=== PATIENT | female | born 1980 | race Caucasian/White ===

== ENCOUNTER → 2018-07-06 | Outpatient (CLI) | payer BC ==
--- NOTE | 2018-07-07 09:01 | MM ---
Reason for exam: screening (asymptomatic). Last mammogram was performed 3 years and 2 months ago. Physical Findings: A clinical breast exam by your physician is recommended on an annual basis and results should be correlated with mammographic findings. MG Screening Mammo w CAD Bilateral CC and MLO view(s) were taken. Prior study comparison: May 17, 2015, right breast MG work up mamm w CAD RT. May 10, 2015, bilateral MG screening mammo w CAD. The breast tissue is heterogeneously dense. This may lower the sensitivity of mammography. Finding: There are typically benign round, grouped/clustered calcifications in the upper outer quadrant, middle position of the right breast. There is no dominant lesion. Asymmetric breast tissue in the left breast is stable. Benign bilateral axillary lymph nodes redemonstrated. ASSESSMENT: Benign, BI-RAD 2 RECOMMENDATION: Routine screening mammogram of both breasts in 1 year.
== END ==
LOC: RADMAMWWP 11:05
PROVIDERS: ATTEND Obstetrics & Gynecology
DX: Z12.31 Encounter for screening mammogram for malignant neoplasm of breast (principal)
CPT/HCPCS: 77067

== ENCOUNTER 2019-08-25 08:37 | Inpatient (IN) | payer BC ==
[2019-08-25] MEDS ORDERED: ACETAMINOPHEN TAB 325 MG TAB PO STA (09:05)
[2019-08-25] MEDS ORDERED: SODIUM CHLORIDE 0.9% 1,000 ML IV ONE (09:05)
[2019-08-25] MEDS ORDERED: SODIUM CHLORIDE 0.9% 500 ML 500 ML IV ONE (09:05)
[2019-08-25] MEDS ORDERED: IPRATROPIUM-ALBUTEROL 3 ML NEB INHALATION STA (09:24)
[2019-08-25] MEDS ORDERED: VANCOMYCIN IV PER PHARMACY 1 EACH MISC MISCELLANE PRN (09:25)
[2019-08-25] MEDS: SODIUM CHLORIDE 0.9% 1,000 ML IV SCH ×2 (09:29→22:41)
[2019-08-25] MEDS ORDERED: IBUPROFEN 800 MG TAB PO STA (09:31)
--- NOTE | 2019-08-25 09:35 | ED ---
URI HPI - General Source: patient Mode of arrival: ambulatory Limitations: no limitations <Joan Espinoza - Last Filed: 08/25/19 10:38> <Dmitry March - Last Filed: 08/25/19 11:11> - General Chief Complaint: Upper Respiratory Infection Stated Complaint: Pneumonia Time Seen by Provider: 08/25/19 09:05 - History of Present Illness Initial Comments: 39-year-old female presenting today for chief complaint of something out patient clinic for possible influenza and pneumonia, diagnosis today. Patient states she has had a fever cough congestion since Thursday. She states that symptoms worsened today and she presented to urgent care where she was diagnosed after nasal stop with influenza she is unsure if it was influenza A or B and chest x- ray was performed at this time. She states there is an area suspicious for possible pneumonia and patient was sent to the emergency department for further evaluation. Patient has not taken any Tylenol today. She admits to cough, congestion, sore throat, body aches, but denies chest pain, shortness of breath, nausea, vomiting, diarrhea, abdominal pain. Patient upon arrival is febrile, increased HR with stable blood pressure. (Joan Espinoza) - Related Data Home Medications Medication Instructions Recorded Confirmed No Known Home Medications 08/25/19 08/25/19 Allergies Allergy/AdvReac Type Severity Reaction Status Date / Time Sulfa (Sulfonamide Allergy Rash/Hives Verified 08/25/19 10:27 Antibiotics) Review of Systems ROS Other: All systems not noted in ROS Statement are negative. <Joan Espinoza - Last Filed: 08/25/19 10:38> ROS Other: All systems not noted in ROS Statement are negative. <Dmitry March - Last Filed: 08/25/19 11:11> ROS Statement: Those systems with pertinent positive or pertinent negative responses have been documented in the HPI. Past Medical History Past Medical History: Eye Disorder History of Any Multi-Drug Resistant Organisms: None Reported Past Surgical History: Section, Cholecystectomy, Uterine Ablation Past Psychological History: No Psychological Hx Reported Smoking Status: Never smoker Past Alcohol Use History: None Reported Past Drug Use History: None Reported <Joan Espinoza - Last Filed: 08/25/19 10:38> - Past Family History Mother Family Medical History: No Reported History Additional Family Medical History / Comment(s): Mother is healthy Father Additional Family Medical History / Comment(s): Pt does not know much about her father other than he is , was an alcoholic and bilpolar <Dmitry March - Last Filed: 08/25/19 11:11> General Exam Limitations: no limitations <Joan Espinoza Garo - Last Filed: 08/25/19 10:38> - General Exam Comments Initial Comments: General: The patient is awake and alert, in no distress, and does not appear acutely ill. Eye: +3 mm pupils are equal, round and reactive to light, extra-ocular movements are intact. No nystagmus. There is normal conjunctiva bilaterally. No signs of icterus. No photophobia Ears, nose, mouth and throat: There are moist mucous membranes and no oral lesions. Oropharynx was not erythematous there is no tonsillar enlargement exudates or lesions. Uvula midline. No anterior cervical lymphadenopathy. Rhi norrhea, clear and bilateral nares. No tripoding, no drooling. Neck: The neck is supple, there is no tenderness or JVD. No nuchal rigidity Cardiovascular: There is a regular rate and rhythm. No murmur, rub or gallop is appreciated. Respiratory: Lungs are clear to auscultation, respirations are non-labored, breath sounds are equal. No wheezes, stridor, rales, or rhonchi. No retractions or abdominal breathing. Gastrointestinal: Soft, non-distended, non-tender abdomen without masses or org anomegaly noted. There is no rebound or guarding present. Bowel sounds are unremarkable. Musculoskeletal: Normal ROM, no tenderness. Strength 5/5. Sensation intact. Radial pulses equal bilaterally 2+. Neurological: A&O x 3. CN II-XII intact grossly, There are no obvious motor or sensory deficits. Coordination appears grossly intact. Speech appears normal, no muffling. Skin: Skin is warm and dry and no rashes or lesions are noted. No extremity edema Psychiatric: Cooperative (Joan Espinoza) Course Vital Signs 08/25/19 08/25/19 08/25/19 08:48 09:32 09:34 Temperature 102.9 F H 103.6 F H Pulse Rate 124 H 110 H 72 Respiratory 19 18 Rate Blood Pressure 118/74 O2 Sat by Pulse 96 95 Oximetry 08/25/19 08/25/19 08/25/19 09:46 10:39 10:42 Temperature 101.3 F H Pulse Rate 74 108 H 109 H Respiratory 20 18 Rate Blood Pressure 121/71 121/71 O2 Sat by Pulse 92 L 92 L Oximetry Medical Decision Making - Lab Data Result diagrams: 08/25/19 09:20 08/25/19 09:20 <Joan Espinoza - Last Filed: 08/25/19 10:38> - Lab Data Result diagrams: 08/25/19 09:20 08/25/19 09:20 <Dmitry March - Last Filed: 08/25/19 11:11> - Medical Decision Making 39-year-old female presents today for chief complaint of some type urgent care for positive influenza with pneumonia. Upon arrival patient febrile tachycardic. Patient oustide CXR reviewed by myself, attending and med radio logist whom i called to consult we feel there is a right lobar pneumonia. With + Flu testing, concern for Strep pneumonia. Patient ordered ceftriaxone, vancomycin and azithromycin emergency department. Patient will be admitted blood cultures pending. (Joan Espinoza) Chart and x-ray was reviewed. Case was discussed with practitioner Alexis. Case also discussed with Dr. flores, who will admit covering for Dr. Chatman. (Dmitry March) - Lab Data Lab Results 08/25/19 08/25/19 08/25/19 Range/Units 09:20 09:20 09:20 WBC 7.1 (3.8-10.6) k/uL RBC 4.38 (3.80-5.40) m/uL Hgb 13.2 (11.4-16.0) gm/dL Hct 38.6 (34.0-46.0) % MCV 88.1 (80.0-100.0) fL MCH 30.1 (25.0-35.0) pg MCHC 34.2 (31.0-37.0) g/dL RDW 12.6 (11.5-15.5) % Plt Count 217 (150-450) k/uL Neutrophils % 78 % Lymphocytes % 12 % Monocytes % 6 % Eosinophils % 1 % Basophils % 1 % Neutrophils # 5.5 (1.3-7.7) k/uL Lymphocytes # 0.8 L (1.0-4.8) k/uL Monocytes # 0.4 (0-1.0) k/uL Eosinophils # 0.0 (0-0.7) k/uL Basophils # 0.0 (0-0.2) k/uL Sodium 137 (137-145) mmol/L Potassium 3.2 L (3.5-5.1) mmol/L Chloride 102 (98-107) mmol/L Carbon Dioxide 27 (22-30) mmol/L Anion Gap 8 mmol/L BUN 4 L (7-17) mg/dL Creatinine 0.66 (0.52-1.04) mg/dL Est GFR (CKD-EPI)AfAm >90 (>60 ml/min/1.73 sqM) Est GFR (CKD-EPI)NonAf >90 (>60 ml/min/1.73 sqM) Glucose 121 H (74-99) mg/dL Plasma Lactic Acid Curtis 0.8 (0.7-2.0) mmol/L Calcium 8.7 (8.4-10.2) mg/dL Total Bilirubin 0.4 (0.2-1.3) mg/dL AST 36 (14-36) U/L ALT 21 (4-34) U/L Alkaline Phosphatase 73 (38-126) U/L Total Protein 7.1 (6.3-8.2) g/dL Albumin 3.7 (3.5-5.0) g/dL Disposition Is patient prescribed a controlled substance at d/c from ED?: No Time of Disposition: 10:07 Decision to Admit Reason: Admit from EC Decision Date: 08/25/19 Decision Time: 10:07 <Joan Espinoza - Last Filed: 08/25/19 10:38> <Dmitry March - Last Filed: 08/25/19 11:11> Clinical Impression: Influenza, Pneumonia, Fever Disposition: ADMITTED IP TO THIS [facility] Condition: Stable
[2019-08-25 09:45] LABS: Basophils % (A) 1 %; Eosinophils % (A) 1 %; HCT 38.6 % (34.0-46.0); HGB 13.2 gm/dL (11.4-16.0); Lymphocytes # (A) 0.8 k/uL (1.0-4.8); Lymphocytes % (A) 12 %; MCH 30.1 pg (25.0-35.0); MCHC 34.2 g/dL (31.0-37.0); MCV 88.1 fL (80.0-100.0); Mean Platelet Volume 8.5; Monocytes # (A) 0.4 k/uL (0-1.0); Monocytes % (A) 6 %; Neutrophils # (A) 5.5 k/uL (1.3-7.7); Neutrophils % (A) 78 %; Platelet Count 217 k/uL (150-450); RBC 4.38 m/uL (3.80-5.40); RDW 12.6 % (11.5-15.5); WBC 7.1 k/uL (3.8-10.6)
[2019-08-25] MEDS ORDERED: VANCOMYCIN 1,750 MG in SODIUM CHLORIDE 0.9% 500 ML 500 ML IVPB STA (09:50)
[2019-08-25] MEDS ORDERED: AZITHROMYCIN 500 MG in SODIUM CHLORIDE 0.9% 250 ML IVPB STA (10:05)
[2019-08-25 10:07] LABS: ALT 21 U/L (4-34); AST 36 U/L (14-36); African American GFR (CKD) >90 (>60 ml/min/1.73 sqM); Albumin 3.7 g/dL (3.5-5.0); Alkaline Phosphatase 73 U/L (38-126); Anion Gap 8 mmol/L; Blood Urea Nitrogen 4 mg/dL (7-17); Calcium 8.7 mg/dL (8.4-10.2); Carbon Dioxide 27 mmol/L (22-30); Chloride 102 mmol/L (98-107); Glucose 121 mg/dL (74-99); Non-African American GFR(CKD) >90 (>60 ml/min/1.73 sqM); Potassium 3.2 mmol/L (3.5-5.1); Sodium 137 mmol/L (137-145); Total Bilirubin 0.4 mg/dL (0.2-1.3); Total Protein 7.1 g/dL (6.3-8.2)
[2019-08-25] MEDS ORDERED: NALOXONE 0.4 MG/ML 1 ML VIAL IV PRN (10:07)
[2019-08-25] MEDS ORDERED: INFLUENZA VACCINE (6 MOS+) 60 MCG/0.5 ML SYRINGE IM ONE (11:04)
--- NOTE | 2019-08-25 13:18 | XR ---
EXAMINATION TYPE: XR chest 1V portable DATE OF EXAM: 08/25/2019 COMPARISON: 08/25/2019 HISTORY: Shortness of breath TECHNIQUE: Single frontal view of the chest is obtained. FINDINGS: Bilateral infiltrate and small right effusion. No pneumothorax. Heart size normal. IMPRESSION: Bilateral infiltrate correlate for pneumonia otherwise consider CHF.
--- NOTE | 2019-08-25 13:40 | P.HPIM ---
History of Present Illness This is a pleasant 39 years old female with past medical history of GERD, bilateral glaucoma. Patient presents with cough and fever for the last 3-4 days. Her cough is dry with tenacious phlegm. She has fever and sweating that's not subsided but no overt dyspnea or chest pain. With no resolution of symptoms she went to urgent care today who diagnosed her with bilateral pneumonia and found to be influenza positive and patient was referred to the current hospital. Patient is currently awake and alert and she is breathing quietly. No significant dyspnea. However she is not feeling well On admission patient has a fever of 103.6, she is tachycardic at 110, blood pressure 121/71, she is saturating 92% on room air. Potassium was 3.2, other than that she has unremarkable CBC, BMP, INR, liver enzymes. In the emergency room patient was started on vancomycin, Rocephin and Tamiflu. Also she was started on normal saline at 100 mL per hour after 1.5 L of normal saline. Review of Systems CONSTITUTIONAL: No fever, no malaise, no fatigue. HEENT: No recent visual problems or hearing problems. Denied any sore throat. CARDIOVASCULAR: No orthopnea, PND, no palpitations, no syncope. PULMONARY: no hemoptysis. GASTROINTESTINAL: No diarrhea, no nausea, no vomiting, no abdominal pain. Normoactive bowel sounds. NEUROLOGICAL: No headaches, no weakness, no numbness. HEMATOLOGICAL: Denies any bleeding or petechiae. GENITOURINARY: Denies any burning micturition, frequency, or urgency. MUSCULOSKELETAL/RHEUMATOLOGICAL: Denies any joint pain, swelling, or any muscle pain. ENDOCRINE: Denies any polyuria or polydipsia. Past Medical History Past Medical History: Eye Disorder, GERD/Reflux Additional Past Medical History / Comment(s): Bilateral glaucoma, slight scoliosis History of Any Multi-Drug Resistant Organisms: None Reported Past Surgical History: Section, Cholecystectomy, Uterine Ablation Additional Past Surgical History / Comment(s): Bilateral laser tx to eyes for glaucoma Past Anesthesia/Blood Transfusion Reactions: No Reported Reaction, Motion Sickness Smoking Status: Never smoker - Past Family History Mother Family Medical History: No Reported History Additional Family Medical History / Comment(s): Mother is healthy Father Additional Family Medical History / Comment(s): Pt does not know much about her father other than he is , was an alcoholic and bilpolar Medications and Allergies Home Medications Medication Instructions Recorded Confirmed Type No Known Home Medications 08/25/19 08/25/19 History Allergies Allergy/AdvReac Type Severity Reaction Status Date / Time Sulfa (Sulfonamide Allergy Rash/Hives Verified 08/25/19 10:27 Antibiotics) Physical Exam Vitals: Vital Signs Temp Pulse Resp BP Pulse Ox 08/25/19 10:42 101.3 F H 109 H 18 121/71 92 L 08/25/19 10:39 108 H 20 121/71 92 L 08/25/19 09:46 74 08/25/19 09:34 72 08/25/19 09:32 103.6 F H 110 H 18 95 08/25/19 08:48 102.9 F H 124 H 19 118/74 96 Intake and Output 08/24/19 08/25/19 08/25/19 22:59 06:59 14:59 Other: Weight 89.63 kg GENERAL: The patient is alert and oriented x3, not in any acute distress. Well developed, well nourished. HEENT: Pupils are round and equally reacting to light. EOMI. No scleral icterus. No conjunctival pallor. Normocephalic, atraumatic. No pharyngeal erythema. No thyromegaly. CARDIOVASCULAR: S1 and S2 present. No murmurs, rubs, or gallops. -PULMONARY: Chest is clear to auscultation, bilateral harsh breath sounds, with inspiratory crackles ABDOMEN: Soft, nontender, nondistended, normoactive bowel sounds. No palpable organomegaly. MUSCULOSKELETAL: No joint swelling or deformity. EXTREMITIES: No cyanosis, clubbing, or pedal edema. NEUROLOGICAL: Gross neurological examination did not reveal any focal deficits. SKIN: No rashes. No petechiae Results CBC & Chem 7: 08/25/19 09:20 08/25/19 09:20 Labs: Abnormal Lab Results - Last 24 Hours (Table) 08/25/19 08/25/19 Range/Units 09:20 09:20 Lymphocytes # 0.8 L (1.0-4.8) k/uL Potassium 3.2 L (3.5-5.1) mmol/L BUN 4 L (7-17) mg/dL Glucose 121 H (74-99) mg/dL Thrombosis Risk Factor Assmnt - Choose All That Apply Each Factor Represents 1 point: Age 41-60 years, Obesity (BMI >25), Serious lung disease incl. pneumonia (< 1month) Other Risk Factors: No Other congenital or acquired thrombophilia - If yes, enter type in comment: No Thrombosis Risk Factor Assessment Total Risk Factor Score: 3 Thrombosis Risk Factor Assessment Level: Moderate Risk Assessment and Plan Assessment: bilateral community acquired pneumonia, rule out staph pneumonia Influenza Systemic inflammatory response with fever, tachycardia GERD Bilateral glaucoma Plan: This is a pleasant 39 years old female who presents with influenza and pneumo vanita. Continue with antibiotics of vancomycin, ceftriaxone and Tamiflu and follow-up culture results. I'll consult pulmonary service as well Labs and medication were reviewed.. Continue same treatment. Continue with symptomatic treatment. Resume home medication. Monitor lytes and vitals. DVT and GI prophylaxis. Further recommendations of the clinical course of the patient DVT prophylaxis: Subcutaneous heparin GI Prophylaxis: Pepcid Prognosis is guarded
--- NOTE | 2019-08-25 13:42 | P.CNPUL ---
History of Present Illness Consult date: 08/25/19 Requesting physician: Storm E Hugo Reason for consult: dyspnea, abnormal CXR/CT Chief complaint: Shortness of breath, cough, congestion History of present illness: This is a very pleasant 39-year-old female patient who follows with Dr. Chatman is her primary care physician. She has no significant medical history. Not on any home medications. ALLERGY is to sulfa. She states 3 days ago she developed increasing shortness of breath, cough or congestion. Nonproductive cough. Body aches, fever, chills or change initially presented to an urgent care center where she was told she was positive for influenza and possible pneumonia on a chest x-ray and was referred here for the same. Chest x-ray does show bilateral infiltrates including the right lower lobe and left perihilar region suspicious for community-acquired pneumonia. White count 7.1. Hemoglobin 13.2. Sodium 137. Potassium 3.2. Creatinine 0.66. HCG is negative. Outside facility stated influenza positive. She is been initiated on vancomycin and ceftriaxone. Started on Tamiflu. 0.9 normal saline at 100 ML's per hour. She is seen in consultation on the regular medical floor. She is awake and alert in no acute distress. Maintaining O2 saturations in the 90s on room air. She's had a T-max of 101.3. Currently 98.4. Review of Systems REVIEW OF SYSTEMS: CONSTITUTIONAL: Denies any recent significant weight loss or weight gain. EYES: Denies change in vision. EARS, NOSE, MOUTH, THROAT: Denies headaches, positive sore throat. CARDIOVASCULAR: Denies chest pain, palpitations or syncopal episodes. RESPIRATORY: Positive for shortness of breath, cough, congestion no hemoptysis. GASTROINTESTINAL: Denies change in appetite, denies abdominal pain GENITOURINARY: Denies hematuria, denies infections. MUSKULOSKELETAL: Denies pain, denies swelling. INTEGUMENTARY: Denies rash, denies eczema. NEUROLOGICAL: Denies recent memory loss, no recent seizure activity. PSYCHIATRIC: Denies anxiety, denies depression. HEMATOLOGIC/LYMPHATIC: Denies anemia, denies enlarged lymph nodes. Past Medical History Past Medical History: Eye Disorder, GERD/Reflux Additional Past Medical History / Comment(s): Bilateral glaucoma, slight scolio sis History of Any Multi-Drug Resistant Organisms: None Reported Past Surgical History: Section, Cholecystectomy, Uterine Ablation Additional Past Surgical History / Comment(s): Bilateral laser tx to eyes for glaucoma Past Anesthesia/Blood Transfusion Reactions: No Reported Reaction, Motion Sickness Smoking Status: Never smoker - Past Family History Mother Family Medical History: No Reported History Additional Family Medical History / Comment(s): Mother is healthy Father Additional Family Medical History / Comment(s): Pt does not know much about her father other than he is , was an alcoholic and bilpolar Medications and Allergies Home Medications Medication Instructions Recorded Confirmed Type No Known Home Medications 08/25/19 08/25/19 History Allergies Allergy/AdvReac Type Severity Reaction Status Date / Time Sulfa (Sulfonamide Allergy Rash/Hives Verified 08/25/19 10:27 Antibiotics) Physical Exam Vitals: Vital Signs Temp Pulse Pulse Resp BP BP Pulse Ox 08/25/19 12:29 98.4 F 104 H 20 107/71 94 L 08/25/19 10:42 101.3 F H 109 H 18 121/71 92 L 08/25/19 10:39 108 H 20 121/71 92 L 08/25/19 09:46 74 08/25/19 09:34 72 08/25/19 09:32 103.6 F H 110 H 18 95 08/25/19 08:48 102.9 F H 124 H 19 118/74 96 Intake and Output 08/24/19 08/25/19 08/25/19 22:59 06:59 14:59 Other: Weight 89.63 kg GENERAL EXAM: Alert, active, pleasant 39-year-old female patient, comfortable in no apparent distress. On room air. HEAD: Normocephalic. EYES: Normal reaction of pupils, equal size. NOSE: Clear with pink turbinates. THROAT: Noted erythema no exudates. NECK: No masses, no JVD. CHEST: No chest wall deformity. LUNGS: Equal air entry with few scattered rhonchi bilaterally. CVS: S1 and S2 normal with no audible murmur, regular rhythm. ABDOMEN: No hepatosplenomegaly, normal bowel sounds, no guarding or rigidity. SPINE: No scoliosis or deformity SKIN: No rashes CENTRAL NERVOUS SYSTEM: No focal deficits, tone is normal in all 4 extremities. EXTREMITIES: There is no peripheral edema. No clubbing, no cyanosis. Peripheral pulses are intact. Results - Laboratory Findings CBC and BMP: 08/25/19 09:20 08/25/19 09:20 Abnormal lab findings: Abnormal Labs 08/25/19 08/25/19 09:20 09:20 Lymphocytes # 0.8 L Potassium 3.2 L BUN 4 L Glucose 121 H - Diagnostic Findings Chest x-ray: image reviewed (Bilateral patchy infiltrate) Assessment and Plan Assessment: 1 Bilateral pneumonia, community-acquired 2 Influenza positive per outside facility 3 Febrile illness secondary to above Plan: The patient was seen and evaluated by Dr. Pearl. Chest x-ray and labs reviewed Continue Tamiflu Continue vancomycin and ceftriaxone Continue IV fluids Repeat chest x-ray in a.m. We will continue to follow I, the cosigning physician, performed a history & physical examination of the patient. Lungs sounds with few scattered rhonchi bilaterally. Maintaining good O2 saturations in the 90s on room air. I discussed the assessment and plan of care with my nurse practitioner, Brenda Watkins. I attest to the above consultation as dictated by her. Time with Patient: Greater than 30
[2019-08-25] MEDS: OSELTAMIVIR 75 MG CAP PO SCH ×2 (14:17→23:20)
[2019-08-25] MEDS: ACETAMINOPHEN TAB 325 MG TAB PO PRN ×2 (17:05→22:39)
[2019-08-25] MEDS: VANCOMYCIN 1,500 MG in SODIUM CHLORIDE 0.9% 250 ML IVPB SCH (20:55)
[2019-08-25] MEDS: FAMOTIDINE 20 MG TAB PO SCH (20:56)
[2019-08-25] MEDS: HEPARIN SODIUM,PORCINE 5,000 UNIT/ML 1 ML VIAL SQ SCH (20:56)
[2019-08-25] MEDS ORDERED: FAMOTIDINE 20 MG/2 ML VIAL IV SCH (21:00)
[2019-08-26] MEDS: VANCOMYCIN 1,500 MG in SODIUM CHLORIDE 0.9% 250 ML IVPB SCH ×3 (05:56→19:43)
[2019-08-26] MEDS: ACETAMINOPHEN TAB 325 MG TAB PO PRN ×2 (05:56→22:25)
[2019-08-26] MEDS: SODIUM CHLORIDE 0.9% 1,000 ML IV SCH ×3 (06:07→18:55)
[2019-08-26] MEDS: FAMOTIDINE 20 MG TAB PO SCH ×2 (08:08→21:09)
[2019-08-26] MEDS: OSELTAMIVIR 75 MG CAP PO SCH ×2 (08:08→21:09)
[2019-08-26] MEDS: guaiFENesin SYRUP 100MG/5ML 200 MG/10 ML CUP PO PRN ×2 (08:08→18:55)
[2019-08-26] MEDS: HEPARIN SODIUM,PORCINE 5,000 UNIT/ML 1 ML VIAL SQ SCH ×2 (08:09→21:09)
[2019-08-26] MEDS: IBUPROFEN 600 MG TAB PO PRN ×2 (08:11→19:43)
--- NOTE | 2019-08-26 08:46 | P.PN ---
Subjective This is a pleasant 39 years old female with past medical history of GERD, bilateral glaucoma. Patient presents with cough and fever for the last 3-4 days. Her cough is dry with tenacious phlegm. She has fever and sweating that's not subsided but no overt dyspnea or chest pain. With no resolution of symptoms she went to urgent care today who diagnosed her with bilateral pneumonia and found to be influenza positive and patient was referred to the current hospital. Patient is currently awake and alert and she is breathing quietly. No signif icant dyspnea. However she is not feeling well On admission patient has a fever of 103.6, she is tachycardic at 110, blood pressure 121/71, she is saturating 92% on room air. Potassium was 3.2, other than that she has unremarkable CBC, BMP, INR, liver enzymes. In the emergency room patient was started on vancomycin, Rocephin and Tamiflu. Also she was started on normal saline at 100 mL per hour after 1.5 L of normal saline. 08/26/2019 Patient is fully awake and oriented. She is still complaining of from fever and dry cough, no phlegm is breaking up. No dyspnea or chest pain. Her temperature this morning was up to 102-103 degrees Fahrenheit. She is mildly tachycardic at 111, blood pressure is stable. No change in urine or bowel habits.No headache. No myalgia or arthralgia. Repeat labs from this morning are still pending. Patient remains on vancomycin, Rocephin and Tamiflu. Continue with droplet isolation. Review of systems CONSTITUTIONAL: No fever, no malaise, no fatigue. HEENT: No recent visual problems or hearing problems. Denied any sore throat. CARDIOVASCULAR: No orthopnea, PND, no palpitations, no syncope. PULMONARY: no hemoptysis. GASTROINTESTINAL: No diarrhea, no nausea, no vomiting, no abdominal pain. Normoactive bowel sounds. NEUROLOGICAL: No headaches, no weakness, no numbness. HEMATOLOGICAL: Denies any bleeding or petechiae. GENITOURINARY: Denies any burning micturition, frequency, or urgency. MUSCULOSKELETAL/RHEUMATOLOGICAL: Denies any joint pain, swelling, or any muscle pain. ENDOCRINE: Denies any polyuria or polydipsia. Active Medications Generic Name Dose Route Start Last Admin Trade Name Freq PRN Reason Stop Dose Admin Acetaminophen 650 mg 08/25/19 16:59 08/26/19 05:56 Tylenol Tab PO 650 mg Q6HR PRN Administration Fever and/ or Pain Famotidine 20 mg 08/25/19 21:00 08/26/19 08:08 Pepcid PO 20 mg Q12HR DELMY Administration Guaifenesin 200 mg 08/26/19 07:08 08/26/19 08:08 Robitussin PO 200 mg Q4H PRN Administration Cough Heparin Sodium (Porcine) 5,000 unit 08/25/19 21:00 08/26/19 08:09 Heparin SQ 5,000 unit Q12HR DELMY Administration Sodium Chloride 1,000 mls @ 100 mls/hr 08/25/19 09:15 08/26/19 06:07 Saline 0.9% IV 100 mls/hr .Q10H DELMY Administration Ceftriaxone Sodium 1 gm/ 50 mls @ 100 mls/hr 08/26/19 09:00 08/26/19 08:09 Sodium Chloride IVPB 100 mls/hr Q24HR DELMY Administration Vancomycin HCl 1,500 mg/ 250 mls @ 125 mls/hr 08/25/19 20:00 08/26/19 05:56 Sodium Chloride IVPB 125 mls/hr Q8H DELMY Administration Ibuprofen 600 mg 08/26/19 07:07 08/26/19 08:11 Motrin PO 600 mg QID PRN Administration pain/fever Naloxone HCl 0.2 mg 08/25/19 10:07 Narcan IV Q2M PRN Opioid Reversal Oseltamivir Phosphate 75 mg 08/25/19 11:00 08/26/19 08:08 Tamiflu PO 08/29/19 21:01 75 mg Q12HR DELMY Administration Objective - Vital Signs Vital signs: Vital Signs Temp 102.8 F H 08/26/19 05:40 Pulse 111 H 08/26/19 05:40 Resp 18 08/26/19 08:00 BP 101/64 08/26/19 05:40 Pulse Ox 91 L 08/26/19 05:40 Intake & Output 08/25/19 08/26/19 08/26/19 18:59 06:59 18:59 Output Total 2 Balance -2 Weight 89.63 kg Output: Urine 2 Other: Voiding Method Toilet Toilet # Voids 1 2 - Exam GENERAL: The patient is alert and oriented x3, not in any acute distress. Well developed, well nourished. HEENT: Pupils are round and equally reacting to light. EOMI. No scleral icterus. No conjunctival pallor. Normocephalic, atraumatic. No pharyngeal erythema. No thyromegaly. CARDIOVASCULAR: S1 and S2 present. No murmurs, rubs, or gallops. PULMONARY: Chest is clear to auscultation, no wheezing or crackles. ABDOMEN: Soft, nontender, nondistended, normoactive bowel sounds. No palpable organomegaly. MUSCULOSKELETAL: No joint swelling or deformity. EXTREMITIES: No cyanosis, clubbing, or pedal edema. NEUROLOGICAL: Gross neurological examination did not reveal any focal deficits. SKIN: No rashes. no petechiae. - Labs CBC & Chem 7: 08/25/19 09:20 08/25/19 09:20 Labs: Abnormal Lab Results - Last 24 Hours (Table) 08/25/19 08/25/19 Range/Units 09:20 09:20 Lymphocytes # 0.8 L (1.0-4.8) k/uL Potassium 3.2 L (3.5-5.1) mmol/L BUN 4 L (7-17) mg/dL Glucose 121 H (74-99) mg/dL Assessment and Plan Assessment: bilateral community acquired pneumonia, rule out staph pneumonia Influenza Systemic inflammatory response with fever, tachycardia GERD Bilateral glaucoma Plan: This is a pleasant 39 years old female who presents with influenza and pneumonia. Continue with antibiotics of vancomycin, ceftriaxone and Tamiflu and follow-up culture results. I'll consult pulmonary service as well Labs and medication were reviewed.. Continue same treatment. Continue with symptomatic treatment. Resume home medication. Monitor lytes and vitals. DVT and GI prophylaxis. Further recommendations of the clinical course of the patient DVT prophylaxis: Subcutaneous heparin GI Prophylaxis: Pepcid Prognosis is guarded
[2019-08-26 08:47] LABS: Basophils % (A) 0 %; Eosinophils % (A) 0 %; HCT 36.9 % (34.0-46.0); HGB 12.2 gm/dL (11.4-16.0); Lymphocytes # (A) 1.6 k/uL (1.0-4.8); Lymphocytes % (A) 18 %; MCHC 33.1 g/dL (31.0-37.0); MCV 90.6 fL (80.0-100.0); Mean Platelet Volume 8.3; Monocytes # (A) 0.6 k/uL (0-1.0); Monocytes % (A) 6 %; Neutrophils # (A) 6.5 k/uL (1.3-7.7); Neutrophils % (A) 71 %; Platelet Count 249 k/uL (150-450); RBC 4.07 m/uL (3.80-5.40); RDW 12.9 % (11.5-15.5); WBC 9.1 k/uL (3.8-10.6)
[2019-08-26 08:55] LABS: African American GFR (CKD) >90 (>60 ml/min/1.73 sqM); Anion Gap 10 mmol/L; Blood Urea Nitrogen 4 mg/dL (7-17); Calcium 8.1 mg/dL (8.4-10.2); Carbon Dioxide 23 mmol/L (22-30); Chloride 108 mmol/L (98-107); Glucose 90 mg/dL (74-99); Non-African American GFR(CKD) >90 (>60 ml/min/1.73 sqM); Potassium 3.1 mmol/L (3.5-5.1); Sodium 141 mmol/L (137-145)
--- NOTE | 2019-08-26 09:37 | XR ---
EXAMINATION TYPE: XR chest 1V portable DATE OF EXAM: 08/26/2019 COMPARISON: Prior chest x-ray 08/25/2019 HISTORY: Bilateral pneumonia TECHNIQUE: Single frontal view of the chest is obtained. FINDINGS: Bilateral airspace disease obscures the left heart border, right hemidiaphragm. No evident pneumothorax. Bones are stable. IMPRESSION: Correlate for pneumonia, follow-up to resolution recommended.
[2019-08-26 09:54] VITALS: BMI 36.1
--- NOTE | 2019-08-26 10:14 | P.PN ---
Subjective Progress Note Date: 08/26/19 Principal diagnosis: Bilateral community-acquired pneumonia This is a very pleasant 39-year-old female patient who follows with Dr. Chatman is her primary care physician. She has no significant medical history. Not on any home medications. ALLERGY is to sulfa. She states 3 days ago she developed increasing shortness of breath, cough or congestion. Nonproductive cough. Body aches, fever, chills or change initially presented to an urgent care center where she was told she was positive for influenza and possible pneumonia on a chest x-ray and was referred here for the same. Chest x-ray does show bilateral infiltrates including the right lower lobe and left perihilar region suspicious for community-acquired pneumonia. White count 7.1. Hemoglobin 13.2. Sodium 137. Potassium 3.2. Creatinine 0.66. HCG is negative. Outside facility stated influenza positive. She is been initiated on vancomycin and ceftriaxone. Started on Tamiflu. 0.9 normal saline at 100 ML's per hour. She is seen in consultation on the regular medical floor. She is awake and alert in no acute distress. Maintaining O2 saturations in the 90s on room air. She's had a T-max of 101.3. Currently 98.4. The patient is seen today 08/26/2019 in follow-up on the regular medical floor. She is awake and alert in no acute distress. She still has some shortness of breath with exertion. Positive cough and congestion. Continues with fever as high as 103 last evening. Continued on acetaminophen and Motrin. Maintaining O2 saturation low 90s on room air. Chest x-ray continues to show bilateral airspace disease obscuring the left heart border and right hemidiaphragm. She's tachycardic. White count 9.1. Hemoglobin 12.2. Creatinine 0.55. Nonproductive cough. Sputum sample pending. She continues on ceftriaxone and vancomycin along with Tamiflu and bronchodilators. Heparin for DVT prophylaxis. Pepcid for GI prophylaxis. Objective - Vital Signs Vital signs: Vital Signs Temp 98.5 F 08/26/19 09:02 Pulse 111 H 08/26/19 05:40 Resp 18 08/26/19 08:00 BP 101/64 08/26/19 05:40 Pulse Ox 91 L 08/26/19 05:40 Intake & Output 08/25/19 08/26/19 08/26/19 18:59 06:59 18:59 Output Total 2 Balance -2 Weight 89.63 kg 89.63 kg Output: Urine 2 Other: Voiding Method Toilet Toilet # Voids 1 2 - Exam GENERAL EXAM: Alert, active, pleasant 39-year-old female patient, comfortable in no apparent distress. On room air. HEAD: Normocephalic. EYES: Normal reaction of pupils, equal size. NOSE: Clear with pink turbinates. THROAT: Noted erythema no exudates. NECK: No masses, no JVD. CHEST: No chest wall deformity. LUNGS: Equal air entry with few scattered rhonchi bilaterally. CVS: S1 and S2 normal with no audible murmur, regular rhythm. ABDOMEN: No hepatosplenomegaly, normal bowel sounds, no guarding or rigidity. SPINE: No scoliosis or deformity SKIN: No rashes CENTRAL NERVOUS SYSTEM: No focal deficits, tone is normal in all 4 extremities. EXTREMITIES: There is no peripheral edema. No clubbing, no cyanosis. Peripheral pulses are intact. - Labs CBC & Chem 7: 08/26/19 08:14 08/26/19 08:14 Labs: Abnormal Lab Results - Last 24 Hours (Table) 08/25/19 08/26/19 Range/Units 09:20 08:14 Potassium 3.2 L 3.1 L (3.5-5.1) mmol/L Chloride 108 H (98-107) mmol/L BUN 4 L 4 L (7-17) mg/dL Glucose 121 H (74-99) mg/dL Calcium 8.1 L (8.4-10.2) mg/dL Assessment and Plan Assessment: 1 Bilateral pneumonia, community-acquired 2 Influenza positive per outside facility 3 Febrile illness secondary to above Plan: The patient was seen and evaluated by Dr. Pearl. Chest x-ray and labs reviewed Continue Tamiflu Continue vancomycin and ceftriaxone Add bronchodilators. Obtain sputum sample. Continue IV fluids Repeat chest x-ray in a.m. We will continue to follow I, the cosigning physician, performed a history & physical examination of the patient. Lungs sounds with few scattered rhonchi bilaterally. Maintaining O2 saturations in the 90s on room air. I discussed the assessment and plan of care with my nurse practitioner, Brenda Watkins. I attest to the above note as dictated by her.
[2019-08-26] MEDS: ALBUTEROL NEBULIZED 2.5 MG/3 ML INHALATION SCH ×3 (11:40→20:00)
[2019-08-26] MEDS ORDERED: ALBUTEROL NEB (CONC) 2.5 MG/0.5 ML INHALATION SCH (12:00)
--- NOTE | 2019-08-26 14:29 | CDI ---
Documentation Clarification Form Date: 08/26/2019 02:10:07 PM From: Mel Schmitt RN, CCDS Admit Date: 08/25/2019 10:24:00 AM Patient Name: Ria Elizabeth Visit Number: [id number] Discharge Date: ATTENTION: The Clinical Documentation Specialists (CDI) and [facility] Coding Staff appreciate your assistance in clarifying documentation. Please respond to the clarification below the line at the bottom and electronically sign. The CDI & [facility] Coding staff will review the response and follow-up if needed. Please note: Queries are made part of the Legal Health Record. If you have any questions, please contact the author of this message via ITS. Dr. Inman Sheet History and Physical notes Systemic inflammatory response with fever, tachycardia. History/Risk Factors: Pneumonia, Influenza positive, Clinical Indicators: 39-year-old female present with cough and fever for the last 3-4 days. On admission patient had a fever of 103.6, she is tachycardic at 110, blood pressure 121/71, she is saturating 92 % on room air. WBC/Left Shift 7. Lactic acid: 0.8 Chest x-ray show bilateral infiltrate including the right lower lobe and left perihilar region Treatment: Rocephin IV, Vancomycin IV, Tamiflu PO monitor lytes and vitals Pulmonary Consult: Bilateral pneumonia suspicious for community-acquired pneumonia IV Fluids In your professional opinion, can you please clarify if these findings signify one of the following conditions: SIRS due to infectious process without Sepsis SIRS with Sepsis SIRS, not due to infection, without acute organ dysfunction Other, please specify Unable to determine SIRS Criteria (2 or more of the following may indicate SIRS): -Temperature < 96.8F(36C) or > 101.0F (38.3C) -Heart Rate > 90 bpm -Respiratory Rate > 20 breaths/min or PaCO2 < 32 mmHg -White Blood Cell Count > 12,000 or < 4,000 cells/mm3 or > 10% bands (Last Revision: May 2017) no AIMEE HAMPTON
[2019-08-26] MEDS: LORazepam 0.5 MG TAB PO PRN (21:09)
[2019-08-27] MEDS ORDERED: VANCOMYCIN TROUGH DUE 1 EACH MISC MISCELLANE ONE (03:00)
[2019-08-27] MEDS ORDERED: IPRATROPIUM-ALBUTEROL 3 ML NEB INHALATION PRN (03:22)
[2019-08-27] MEDS: guaiFENesin SYRUP 100MG/5ML 200 MG/10 ML CUP PO PRN (03:50)
[2019-08-27 04:25] LABS: Basophils # (A) 0.1 k/uL (0-0.2); Basophils % (A) 1 %; Eosinophils # (A) 0.1 k/uL (0-0.7); Eosinophils % (A) 1 %; HCT 36.1 % (34.0-46.0); HGB 11.6 gm/dL (11.4-16.0); Lymphocytes # (A) 1.6 k/uL (1.0-4.8); Lymphocytes % (A) 18 %; MCH 29.3 pg (25.0-35.0); MCHC 32.1 g/dL (31.0-37.0); MCV 91.3 fL (80.0-100.0); Mean Platelet Volume 8.1; Monocytes # (A) 0.6 k/uL (0-1.0); Monocytes % (A) 7 %; Neutrophils # (A) 6.1 k/uL (1.3-7.7); Neutrophils % (A) 70 %; Platelet Count 236 k/uL (150-450); RBC 3.95 m/uL (3.80-5.40); WBC 8.6 k/uL (3.8-10.6)
[2019-08-27] MEDS: VANCOMYCIN 1,500 MG in SODIUM CHLORIDE 0.9% 250 ML IVPB SCH (04:34)
[2019-08-27 04:48] LABS: African American GFR (CKD) >90 (>60 ml/min/1.73 sqM); Anion Gap 7 mmol/L; Blood Urea Nitrogen 4 mg/dL (7-17); Calcium 8.2 mg/dL (8.4-10.2); Carbon Dioxide 24 mmol/L (22-30); Chloride 110 mmol/L (98-107); Glucose 106 mg/dL (74-99); Non-African American GFR(CKD) >90 (>60 ml/min/1.73 sqM); Sodium 141 mmol/L (137-145)
[2019-08-27] MEDS: ACETAMINOPHEN TAB 325 MG TAB PO PRN ×2 (05:40→20:17)
[2019-08-27] MEDS: LORazepam 0.5 MG TAB PO PRN ×2 (06:13→17:40)
[2019-08-27] MEDS: FAMOTIDINE 20 MG TAB PO SCH ×2 (08:03→20:18)
[2019-08-27] MEDS: IBUPROFEN 600 MG TAB PO PRN ×2 (08:04→23:34)
[2019-08-27] MEDS: HEPARIN SODIUM,PORCINE 5,000 UNIT/ML 1 ML VIAL SQ SCH ×2 (08:04→20:18)
[2019-08-27] MEDS: OSELTAMIVIR 75 MG CAP PO SCH ×2 (08:04→20:19)
[2019-08-27] MEDS: ALBUTEROL NEBULIZED 2.5 MG/3 ML INHALATION SCH ×4 (08:16→21:21)
[2019-08-27] MEDS ORDERED: Potassium Replacement Protocol 1 EACH MISC MISCELLANE PRN (11:15)
[2019-08-27] MEDS: SODIUM CHLORIDE 0.9% 1,000 ML IV SCH ×2 (11:23→22:19)
[2019-08-27] MEDS: POTASSIUM CHLORIDE ER 20 MEQ TAB.ER PO SCH (11:27)
[2019-08-27] MEDS: VANCOMYCIN 1,750 MG in SODIUM CHLORIDE 0.9% 500 ML 500 ML IVPB SCH ×2 (11:39→20:18)
[2019-08-27] MEDS ORDERED: Magnesium Replacement Protocol 1 EACH MISC MISCELLANE PRN (11:44)
--- NOTE | 2019-08-27 13:41 | P.PN ---
Subjective Progress Note Date: 08/27/19 Principal diagnosis: Acute influenza infection and bilateral pneumonia. This is a very pleasant 39-year-old female patient who follows with Dr. Chatman is her primary care physician. She has no significant medical history. Not on any home medications. ALLERGY is to sulfa. She states 3 days ago she developed increasing shortness of breath, cough or congestion. Nonproductive cough. Body aches, fever, chills or change initially presented to an urgent care center where she was told she was positive for influenza and possible pneumonia on a chest x-ray and was referred here for the same. Chest x-ray does show bilateral infiltrates including the right lower lobe and left perihilar region suspicious for community-acquired pneumonia. White count 7.1. Hemoglobin 13.2. Sodium 137. Potassium 3.2. Creatinine 0.66. HCG is negative. Outside facility stated influenza positive. She is been initiated on vancomycin and ceftriaxone. Started on Tamiflu. 0.9 normal saline at 100 ML's per hour. She is seen in consultation on the regular medical floor. She is awake and alert in no acute distress. Maintaining O2 saturations in the 90s on room air. She's had a T-max of 101.3. Currently 98.4. The patient is seen today 08/26/2019 in follow-up on the regular medical floor. She is awake and alert in no acute distress. She still has some shortness of breath with exertion. Positive cough and congestion. Continues with fever as high as 103 last evening. Continued on acetaminophen and Motrin. Maintaining O2 saturation low 90s on room air. Chest x-ray continues to show bilateral airspace disease obscuring the left heart border and right hemidiaphragm. She's tachycardic. White count 9.1. Hemoglobin 12.2. Creatinine 0.55. Nonproductive cough. Sputum sample pending. She continues on ceftriaxone and vancomycin along with Tamiflu and bronchodilators. Heparin for DVT prophylaxis. Pepcid for GI prophylaxis. Reevaluated today on 08/27/2019, patient remains on the sixth floor, doing well clinically, asymptomatic except for nonproductive cough presently on room air, O2 saturations 94%. She had a T-max of 100 last night. Overall there is improvement, but I would like to see at least no worsening on the chest x-ray in the next 24 hours, and would like to see the patient afebrile before good clear for discharge home. WBC is 8.6 hemoglobin 11.6 electrolytes were reviewed potassium is low being corrected as per protocol. Objective - Vital Signs Vital signs: Vital Signs Temp 98.6 F 08/27/19 09:52 Pulse 88 08/27/19 11:53 Resp 20 08/27/19 06:30 BP 124/77 08/27/19 06:30 Pulse Ox 96 08/27/19 06:30 Intake & Output 08/26/19 08/27/19 08/27/19 18:59 06:59 18:59 Intake Total 240 725 Output Total 2 Balance 238 725 Weight 89.63 kg Intake: Oral 240 725 Output: Urine 2 Other: Voiding Method Toilet # Voids 2 - Exam GENERAL: Revealed 39-year-old female in no distress, very pleasant. HEENT: Pupils are round and equally reacting to light. EOMI. No scleral icterus. No conjunctival pallor. Normocephalic, atraumatic. No pharyngeal erythema. No thyromegaly. CARDIOVASCULAR: S1 and S2 present. No murmurs, rubs, or gallops. PULMONARY: Chest is clear to auscultation, no wheezing or crackles. ABDOMEN: Soft, nontender, nondistended, normoactive bowel sounds. No palpable organomegaly. MUSCULOSKELETAL: No joint swelling or deformity. EXTREMITIES: No cyanosis, clubbing, or pedal edema. NEUROLOGICAL: Gross neurological examination did not reveal any focal deficits. SKIN: No rashes. no petechiae. - Labs CBC & Chem 7: 08/27/19 03:45 08/27/19 03:45 Labs: Abnormal Lab Results - Last 24 Hours (Table) 08/27/19 Range/Units 03:45 Potassium 3.0 L (3.5-5.1) mmol/L Chloride 110 H (98-107) mmol/L BUN 4 L (7-17) mg/dL Glucose 106 H (74-99) mg/dL Calcium 8.2 L (8.4-10.2) mg/dL Microbiology - Last 24 Hours (Table) 08/25/19 09:20 Blood Culture - Preliminary Blood No Growth after 48 hours Assessment and Plan Assessment: 1 Bilateral pneumonia, community-acquired 2 Influenza positive per outside facility 3 Febrile illness secondary to above Recommendation: Continue antibiotics, Continue Tamiflu, Continue bronchodilators, Follow-up chest x-ray in a.m., and if improved consider discharge planning especially the patient remains afebrile. Time with Patient: Less than 30
[2019-08-27] MEDS: MAGNESIUM SULFATE-D5W PMX 1 GM in DEXTROSE/WATER 1 100ML.BAG IVPB SCH ×2 (15:12→16:44)
[2019-08-27] MEDS ORDERED: MAGNESIUM SULFATE-D5W PMX 1 GM in DEXTROSE/WATER 1 100ML.BAG IVPB ONE (18:47)
--- NOTE | 2019-08-27 18:48 | P.PN ---
Subjective This is a pleasant 39 years old female with past medical history of GERD, bilateral glaucoma. Patient presents with cough and fever for the last 3-4 days. Her cough is dry with tenacious phlegm. She has fever and sweating that's not subsided but no overt dyspnea or chest pain. With no resolution of symptoms she went to urgent care today who diagnosed her with bilateral pneumonia and found to be influenza positive and patient was referred to the current hospital. Patient is currently awake and alert and she is breathing quietly. No signif icant dyspnea. However she is not feeling well On admission patient has a fever of 103.6, she is tachycardic at 110, blood pressure 121/71, she is saturating 92% on room air. Potassium was 3.2, other than that she has unremarkable CBC, BMP, INR, liver enzymes. In the emergency room patient was started on vancomycin, Rocephin and Tamiflu. Also she was started on normal saline at 100 mL per hour after 1.5 L of normal saline. 08/26/2019 Patient is fully awake and oriented. She is still complaining of from fever and dry cough, no phlegm is breaking up. No dyspnea or chest pain. Her temperature this morning was up to 102-103 degrees Fahrenheit. She is mildly tachycardic at 111, blood pressure is stable. No change in urine or bowel habits.No headache. No myalgia or arthralgia. Repeat labs from this morning are still pending. Patient remains on vancomycin, Rocephin and Tamiflu. Continue with droplet isolation. 08/27/2019 pt is awake with still similar complaint with cough especially at evening , still running high fever was 100 yesterday and today , we repeated blood culture, and continue with the same treatment of tamiflu and rocephin and vancomycin, low potssium replaced. pt is with followed closely with pulmonary service Objective - Vital Signs Vital signs: Vital Signs Temp 97.8 F 08/27/19 17:27 Pulse 88 08/27/19 16:33 Resp 16 08/27/19 15:00 BP 141/72 08/27/19 15:00 Pulse Ox 90 L 08/27/19 15:00 Intake & Output 08/26/19 08/27/19 08/27/19 18:59 06:59 18:59 Intake Total 240 725 Output Total 2 Balance 238 725 Weight 89.63 kg Intake: Oral 240 725 Output: Urine 2 Other: Voiding Method Toilet # Voids 2 4 # Bowel Movements 4 - Exam GENERAL: The patient is alert and oriented x3, not in any acute distress. Well developed, well nourished. HEENT: Pupils are round and equally reacting to light. EOMI. No scleral icterus. No conjunctival pallor. Normocephalic, atraumatic. No pharyngeal erythema. No thyromegaly. CARDIOVASCULAR: S1 and S2 present. No murmurs, rubs, or gallops. PULMONARY: Chest is clear to auscultation, no wheezing or crackles. ABDOMEN: Soft, nontender, nondistended, normoactive bowel sounds. No palpable organomegaly. MUSCULOSKELETAL: No joint swelling or deformity. EXTREMITIES: No cyanosis, clubbing, or pedal edema. NEUROLOGICAL: Gross neurological examination did not reveal any focal deficits. SKIN: No rashes. no petechiae. - Labs CBC & Chem 7: 08/27/19 03:45 08/27/19 03:45 Labs: Abnormal Lab Results - Last 24 Hours (Table) 08/27/19 Range/Units 03:45 Potassium 3.0 L (3.5-5.1) mmol/L Chloride 110 H (98-107) mmol/L BUN 4 L (7-17) mg/dL Glucose 106 H (74-99) mg/dL Calcium 8.2 L (8.4-10.2) mg/dL Microbiology - Last 24 Hours (Table) 08/25/19 09:20 Blood Culture - Preliminary Blood No Growth after 48 hours Assessment and Plan Assessment: bilateral community acquired pneumonia, rule out staph pneumonia Influenza Systemic inflammatory response with fever, tachycardia GERD Bilateral glaucoma Plan: This is a pleasant 39 years old female who presents with influenza and pneumonia. Continue with antibiotics of vancomycin, ceftriaxone and Tamiflu and follow-up culture results. I'll consult pulmonary service as well Labs and medication were reviewed.. Continue same treatment. Continue with symptomatic treatment. Resume home medication. Monitor lytes and vitals. DVT and GI prophylaxis. Further recommendations of the clinical course of the patient DVT prophylaxis: Subcutaneous heparin GI Prophylaxis: Pepcid Prognosis is guarded
[2019-08-28] MEDS: VANCOMYCIN 1,750 MG in SODIUM CHLORIDE 0.9% 500 ML 500 ML IVPB SCH ×3 (03:10→20:41)
[2019-08-28] MEDS: ALBUTEROL NEBULIZED 2.5 MG/3 ML INHALATION SCH ×4 (07:10→21:22)
[2019-08-28] MEDS: OSELTAMIVIR 75 MG CAP PO SCH ×2 (07:30→20:41)
[2019-08-28] MEDS: HEPARIN SODIUM,PORCINE 5,000 UNIT/ML 1 ML VIAL SQ SCH ×2 (07:30→20:41)
[2019-08-28] MEDS: SODIUM CHLORIDE 0.9% 1,000 ML IV SCH (07:30)
[2019-08-28] MEDS: FAMOTIDINE 20 MG TAB PO SCH ×2 (07:30→20:41)
--- NOTE | 2019-08-28 07:52 | XR ---
EXAMINATION TYPE: XR chest 1V portable DATE OF EXAM: 08/28/2019 COMPARISON: 08/26/2019 HISTORY: Bilateral pneumonia TECHNIQUE: Single frontal view of the chest is obtained. FINDINGS: Persistent sizable areas of consolidation are seen and bilateral effusion noted. Heart siz e stable. No pneumothorax. IMPRESSION: Bilateral pleural-parenchymal disease correlate for pneumonia otherwise consider pulmona ry edema
[2019-08-28] MEDS ORDERED: FUROSEMIDE 10 MG/ML 2 ML VIAL IV STA (08:00)
--- NOTE | 2019-08-28 08:01 | P.PN ---
Subjective This is a pleasant 39 years old female with past medical history of GERD, bilateral glaucoma. Patient presents with cough and fever for the last 3-4 days. Her cough is dry with tenacious phlegm. She has fever and sweating that's not subsided but no overt dyspnea or chest pain. With no resolution of symptoms she went to urgent care today who diagnosed her with bilateral pneumonia and found to be influenza positive and patient was referred to the current hospital. Patient is currently awake and alert and she is breathing quietly. No signif icant dyspnea. However she is not feeling well On admission patient has a fever of 103.6, she is tachycardic at 110, blood pressure 121/71, she is saturating 92% on room air. Potassium was 3.2, other than that she has unremarkable CBC, BMP, INR, liver enzymes. In the emergency room patient was started on vancomycin, Rocephin and Tamiflu. Also she was started on normal saline at 100 mL per hour after 1.5 L of normal saline. 08/26/2019 Patient is fully awake and oriented. She is still complaining of from fever and dry cough, no phlegm is breaking up. No dyspnea or chest pain. Her temperature this morning was up to 102-103 degrees Fahrenheit. She is mildly tachycardic at 111, blood pressure is stable. No change in urine or bowel habits.No headache. No myalgia or arthralgia. Repeat labs from this morning are still pending. Patient remains on vancomycin, Rocephin and Tamiflu. Continue with droplet isolation. 08/27/2019 pt is awake with still similar complaint with cough especially at evening , still running high fever was 100 yesterday and today , we repeated blood culture, and continue with the same treatment of tamiflu and rocephin and vancomycin, low potssium replaced. pt is with followed closely with pulmonary service 08/28/2019 Patient today has more dyspnea and tachypnea. Fever is subsiding. She saturating 97% on 2 L oxygen via deena breathing rate is about 20-22/m. Chest x- ray reviewed by me and done this morning showing bilateral infiltrates Similar when she had on admission, however per the radiologist reports possible pulmonary edema, we stopped the normal saline at 100 mL per hour and we'll give her 1 time dose of Lasix. Repeat labs this morning are still pending. Objective - Vital Signs Vital signs: Vital Signs Temp 97.1 F L 08/28/19 05:34 Pulse 92 08/28/19 07:20 Resp 20 08/28/19 05:34 BP 113/74 08/28/19 05:34 Pulse Ox 97 08/28/19 07:12 Intake & Output 08/27/19 08/28/19 08/28/19 18:59 06:59 18:59 Intake Total 575 Balance 575 Intake: Oral 575 Other: Voiding Method Toilet # Voids 4 2 # Bowel Movements 4 - Exam GENERAL: The patient is alert and oriented x3, not in any acute distress. Well developed, well nourished. HEENT: Pupils are round and equally reacting to light. EOMI. No scleral icterus. No conjunctival pallor. Normocephalic, atraumatic. No pharyngeal erythema. No thyromegaly. CARDIOVASCULAR: S1 and S2 present. No murmurs, rubs, or gallops. PULMONARY: Chest is clear to auscultation, no wheezing or crackles. ABDOMEN: Soft, nontender, nondistended, normoactive bowel sounds. No palpable organomegaly. MUSCULOSKELETAL: No joint swelling or deformity. EXTREMITIES: No cyanosis, clubbing, or pedal edema. NEUROLOGICAL: Gross neurological examination did not reveal any focal deficits. SKIN: No rashes. no petechiae. - Labs CBC & Chem 7: 08/27/19 03:45 08/27/19 19:20 Labs: Microbiology - Last 24 Hours (Table) 08/26/19 22:18 Blood Culture - Preliminary Blood No Growth after 24 hours 08/25/19 09:20 Blood Culture - Preliminary Blood No Growth after 48 hours Assessment and Plan Assessment: bilateral community acquired pneumonia, rule out staph pneumonia Influenza Systemic inflammatory response with fever, tachycardia GERD Bilateral glaucoma Plan: This is a pleasant 39 years old female who presents with influenza and pneumonia. Continue with antibiotics of vancomycin, ceftriaxone and Tamiflu and follow-up culture results. Follow-up recommendation by hospitalist program director. Stop IV fluids Labs and medication were reviewed.. Continue same treatment. Continue with symptomatic treatment. Resume home medication. Monitor lytes and vitals. DVT and GI prophylaxis. Further recommendations of the clinical course of the patient DVT prophylaxis: Subcutaneous heparin GI Prophylaxis: Pepcid Prognosis is guarded
[2019-08-28] MEDS ORDERED: ALPRAZolam 0.5 MG TAB PO STA (08:10)
[2019-08-28 09:10] LABS: Basophils # (A) 0.1 k/uL (0-0.2); Basophils % (A) 1 %; Eosinophils # (A) 0.1 k/uL (0-0.7); Eosinophils % (A) 1 %; HCT 33.2 % (34.0-46.0); HGB 11.1 gm/dL (11.4-16.0); Lymphocytes # (A) 1.3 k/uL (1.0-4.8); Lymphocytes % (A) 12 %; MCH 30.5 pg (25.0-35.0); MCHC 33.5 g/dL (31.0-37.0); Mean Platelet Volume 8.4; Monocytes # (A) 0.8 k/uL (0-1.0); Monocytes % (A) 7 %; Neutrophils # (A) 8.3 k/uL (1.3-7.7); Neutrophils % (A) 77 %; Platelet Count 317 k/uL (150-450); RBC 3.64 m/uL (3.80-5.40); WBC 10.8 k/uL (3.8-10.6)
[2019-08-28 09:17] LABS: African American GFR (CKD) >90 (>60 ml/min/1.73 sqM); Anion Gap 9 mmol/L; Blood Urea Nitrogen 4 mg/dL (7-17); Calcium 8.4 mg/dL (8.4-10.2); Carbon Dioxide 25 mmol/L (22-30); Chloride 108 mmol/L (98-107); Glucose 117 mg/dL (74-99); Non-African American GFR(CKD) >90 (>60 ml/min/1.73 sqM); Potassium 3.4 mmol/L (3.5-5.1); Sodium 142 mmol/L (137-145)
[2019-08-28] MEDS: ACETAMINOPHEN TAB 325 MG TAB PO PRN (10:30)
[2019-08-28] MEDS: IBUPROFEN 600 MG TAB PO PRN (12:45)
--- NOTE | 2019-08-28 12:48 | P.PN ---
Subjective Progress Note Date: 08/28/19 Principal diagnosis: Acute influenza infection and bilateral pneumonia. This is a very pleasant 39-year-old female patient who follows with Dr. Chatman is her primary care physician. She has no significant medical history. Not on any home medications. ALLERGY is to sulfa. She states 3 days ago she developed increasing shortness of breath, cough or congestion. Nonproductive cough. Body aches, fever, chills or change initially presented to an urgent care center where she was told she was positive for influenza and possible pneumonia on a chest x-ray and was referred here for the same. Chest x-ray does show bilateral infiltrates including the right lower lobe and left perihilar region suspicious for community-acquired pneumonia. White count 7.1. Hemoglobin 13.2. Sodium 137. Potassium 3.2. Creatinine 0.66. HCG is negative. Outside facility stated influenza positive. She is been initiated on vancomycin and ceftriaxone. Started on Tamiflu. 0.9 normal saline at 100 ML's per hour. She is seen in consultation on the regular medical floor. She is awake and alert in no acute distress. Maintaining O2 saturations in the 90s on room air. She's had a T-max of 101.3. Currently 98.4. The patient is seen today 08/26/2019 in follow-up on the regular medical floor. She is awake and alert in no acute distress. She still has some shortness of breath with exertion. Positive cough and congestion. Continues with fever as high as 103 last evening. Continued on acetaminophen and Motrin. Maintaining O2 saturation low 90s on room air. Chest x-ray continues to show bilateral airspace disease obscuring the left heart border and right hemidiaphragm. She's tachycardic. White count 9.1. Hemoglobin 12.2. Creatinine 0.55. Nonproductive cough. Sputum sample pending. She continues on ceftriaxone and vancomycin along with Tamiflu and bronchodilators. Heparin for DVT prophylaxis. Pepcid for GI prophylaxis. Reevaluated today on 08/27/2019, patient remains on the sixth floor, doing well clinically, asymptomatic except for nonproductive cough presently on room air, O2 saturations 94%. She had a T-max of 100 last night. Overall there is improvement, but I would like to see at least no worsening on the chest x-ray in the next 24 hours, and would like to see the patient afebrile before good clear for discharge home. WBC is 8.6 hemoglobin 11.6 electrolytes were reviewed potassium is low being corrected as per protocol. Reevaluated today on 08/28/2019, patient remains on the same floor, slightly worse today, and her chest x-ray showed slight worsening of her infiltrates bilaterally, and there is a possibility of small bilateral pleural effusions. Patient was given Lasix earlier by the admitting physician. She remains on antibiotics and on Tamiflu. Patient had a T-max of 99.4 today, and her maximum temp was 100 yesterday. She is on 2 L nasal cannula and O2 saturation is 97%. She is complaining of intermittent cough, and some shortness of breath on exertion. WBC count is slightly up 10.8 today, hemoglobin is 11.1 electrolytes are relatively normal renal profile is normal potassium is being corrected as per protocol. Objective - Vital Signs Vital signs: Vital Signs Temp 99.4 F 08/28/19 10:27 Pulse 92 08/28/19 07:20 Resp 20 08/28/19 05:34 BP 113/74 08/28/19 05:34 Pulse Ox 97 08/28/19 07:12 Intake & Output 08/27/19 08/28/19 08/28/19 18:59 06:59 18:59 Intake Total 575 240 Output Total 900 Balance 575 -660 Intake: Oral 575 240 Output: Urine 900 Other: Voiding Method Toilet # Voids 4 2 # Bowel Movements 4 - Exam GENERAL: Revealed 39-year-old female in no distress, very pleasant. On 2 L nasal cannula HEENT: Pupils are round and equally reacting to light. EOMI. No scleral icterus. No conjunctival pallor. Normocephalic, atraumatic. No pharyngeal erythema. No thyromegaly. CARDIOVASCULAR: S1 and S2 present. No murmurs, rubs, or gallops. PULMONARY: Minimal crackles at the bases, no rhonchi and no wheezes ABDOMEN: Soft, nontender, nondistended, normoactive bowel sounds. No palpable organomegaly. MUSCULOSKELETAL: No joint swelling or deformity. EXTREMITIES: No cyanosis, clubbing, or pedal edema. NEUROLOGICAL: Gross neurological examination did not reveal any focal deficits. SKIN: No rashes. no petechiae. - Labs CBC & Chem 7: 08/28/19 08:16 08/28/19 08:16 Labs: Abnormal Lab Results - Last 24 Hours (Table) 08/28/19 08/28/19 Range/Units 08:16 08:16 WBC 10.8 H (3.8-10.6) k/uL RBC 3.64 L (3.80-5.40) m/uL Hgb 11.1 L (11.4-16.0) gm/dL Hct 33.2 L (34.0-46.0) % Neutrophils # 8.3 H (1.3-7.7) k/uL Potassium 3.4 L (3.5-5.1) mmol/L Chloride 108 H (98-107) mmol/L BUN 4 L (7-17) mg/dL Glucose 117 H (74-99) mg/dL Microbiology - Last 24 Hours (Table) 08/25/19 09:20 Blood Culture - Preliminary Blood No Growth after 72 hours 08/26/19 22:18 Blood Culture - Preliminary Blood No Growth after 24 hours Assessment and Plan Assessment: 1 Bilateral pneumonia, community-acquired 2 Influenza positive per outside facility 3 Febrile illness secondary to above Recommendation: Continue antibiotics, Continue Tamiflu, Continue bronchodilators, After reviewing the chest x-ray, I feel the patient should remain in the hospital, agree with [place], should have follow-up chest x-ray in a.m. We'll continue to follow. Not cleared for discharge at this point yet. Time with Patient: Less than 30
[2019-08-28] MEDS ORDERED: Potassium Replacement Protocol 1 EACH MISC MISCELLANE PRN ×3 (18:46→21:06)
[2019-08-28] MEDS ORDERED: POTASSIUM CHLORIDE 10 MEQ in WATER FOR INJECTION 1 100ML.BAG IVPB SCH (19:00)
[2019-08-28] MEDS: POTASSIUM CHLORIDE ER 20 MEQ TAB.ER PO SCH ×2 (19:36→20:41)
[2019-08-28] MEDS: guaiFENesin SYRUP 100MG/5ML 200 MG/10 ML CUP PO PRN (23:32)
[2019-08-29] MEDS: ACETAMINOPHEN TAB 325 MG TAB PO PRN (02:52)
[2019-08-29] MEDS: VANCOMYCIN 1,750 MG in SODIUM CHLORIDE 0.9% 500 ML 500 ML IVPB SCH ×3 (04:22→21:16)
[2019-08-29] MEDS ORDERED: guaiFENesin-DM 100-10MG/5ML 10 ML CUP PO PRN (07:18)
--- NOTE | 2019-08-29 07:58 | P.PN ---
Subjective This is a pleasant 39 years old female with past medical history of GERD, bilateral glaucoma. Patient presents with cough and fever for the last 3-4 days. Her cough is dry with tenacious phlegm. She has fever and sweating that's not subsided but no overt dyspnea or chest pain. With no resolution of symptoms she went to urgent care today who diagnosed her with bilateral pneumonia and found to be influenza positive and patient was referred to the current hospital. Patient is currently awake and alert and she is breathing quietly. No signif icant dyspnea. However she is not feeling well On admission patient has a fever of 103.6, she is tachycardic at 110, blood pressure 121/71, she is saturating 92% on room air. Potassium was 3.2, other than that she has unremarkable CBC, BMP, INR, liver enzymes. In the emergency room patient was started on vancomycin, Rocephin and Tamiflu. Also she was started on normal saline at 100 mL per hour after 1.5 L of normal saline. 08/26/2019 Patient is fully awake and oriented. She is still complaining of from fever and dry cough, no phlegm is breaking up. No dyspnea or chest pain. Her temperature this morning was up to 102-103 degrees Fahrenheit. She is mildly tachycardic at 111, blood pressure is stable. No change in urine or bowel habits.No headache. No myalgia or arthralgia. Repeat labs from this morning are still pending. Patient remains on vancomycin, Rocephin and Tamiflu. Continue with droplet isolation. 08/27/2019 pt is awake with still similar complaint with cough especially at evening , still running high fever was 100 yesterday and today , we repeated blood culture, and continue with the same treatment of tamiflu and rocephin and vancomycin, low potssium replaced. pt is with followed closely with pulmonary service 08/28/2019 Patient today has more dyspnea and tachypnea. Fever is subsiding. She saturating 97% on 2 L oxygen via deena breathing rate is about 20-22/m. Chest x- ray reviewed by me and done this morning showing bilateral infiltrates Similar when she had on admission, however per the radiologist reports possible pulmonary edema, we stopped the normal saline at 100 mL per hour and we'll give her 1 time dose of Lasix. Repeat labs this morning are still pending. 08/29/2019 Patient is to feels fatigue, she still coughing heart which sometimes Up from sleep. Her dyspnea is improved significantly after she got Lasix yesterday with good urine output. However she is not feeling back or close back to her normal. This morning she has fever of 101. WBC is 10.8. Repeat chest x-ray: Still shows bilateral infiltrates, pending final report. Patient remains on Tamiflu, Rocephin and vancomycin. Normal salinehas discontinued. We'll start the patient on D5 half-normal saline at 50 mg/h. Give cough syrup Review of systems HEENT: No recent visual problems or hearing problems. Denied any sore throat. CARDIOVASCULAR: no palpitations, no syncope. PULMONARY: no hemoptysis. GASTROINTESTINAL: No diarrhea, no nausea, no vomiting, no abdominal pain. Normoactive bowel sounds. NEUROLOGICAL: No headaches, no weakness, no numbness. HEMATOLOGICAL: Denies any bleeding or petechiae. GENITOURINARY: Denies any burning micturition, frequency, or urgency. MUSCULOSKELETAL/RHEUMATOLOGICAL: Denies any joint pain, swelling, or any muscle pain. ENDOCRINE: Denies any polyuria or polydipsia. Active Medications Generic Name Dose Route Start Last Admin Trade Name Freq PRN Reason Stop Dose Admin Acetaminophen 650 mg 08/25/19 16:59 08/29/19 02:52 Tylenol Tab PO 650 mg Q6HR PRN Administration Fever and/ or Pain Albuterol Sulfate 2.5 mg 08/26/19 12:00 08/28/19 21:22 Ventolin Nebulized INHALATION 2.5 mg RT-QID DELMY Administration Albuterol/Ipratropium 3 ml 08/27/19 03:22 08/27/19 03:35 Duoneb 0.5 Mg-3 Mg/3 Ml Soln INHALATION 3 ml RT-Q2H PRN Administration Shortness Of Breath Or Wheezing Famotidine 20 mg 08/25/19 21:00 08/28/19 20:41 Pepcid PO 20 mg Q12HR DELMY Administration Guaifenesin/Dextromethorphan 10 ml 08/29/19 07:18 Robitussin Dm PO Q6H PRN Cough Heparin Sodium (Porcine) 5,000 unit 08/25/19 21:00 08/28/19 20:41 Heparin SQ 5,000 unit Q12HR DELMY Administration Ceftriaxone Sodium 1 gm/ 50 mls @ 100 mls/hr 08/26/19 09:00 08/28/19 07:30 Sodium Chloride IVPB 100 mls/hr Q24HR DELMY Administration Vancomycin HCl 1,750 mg/ 500 mls @ 167 mls/hr 08/27/19 12:00 08/29/19 04:22 Sodium Chloride IVPB 167 mls/hr Q8H DELMY Administration Dextrose/Sodium Chloride 1,000 mls @ 50 mls/hr 08/29/19 08:00 Dextrose 5%-1/2ns Iv Soln IV .Q20H DELMY Ibuprofen 600 mg 08/26/19 07:07 08/28/19 12:45 Motrin PO 600 mg QID PRN Administration pain/fever Lorazepam 0.5 mg 08/26/19 19:14 08/27/19 17:40 Ativan PO 0.5 mg TID PRN Administration Anxiety Miscellaneous Information 1 each 08/27/19 11:15 Potassium Per Protocol MISCELLANE DAILY PRN Per Protocol Protocol Miscellaneous Information 1 each 08/27/19 11:44 Magnesium Per Protocol MISCELLANE DAILY PRN Per Protocol Protocol Miscellaneous Information 0 each 08/29/19 11:00 Vancomycin Trough Due MISCELLANE 08/29/19 11:01 DIRECTED ONE Miscellaneous Information 1 each 08/28/19 18:50 Potassium Per Protocol MISCELLANE DAILY PRN Per Protocol Protocol Miscellaneous Information 1 each 08/28/19 21:06 Potassium Per Protocol MISCELLANE DAILY PRN Per Protocol Protocol Naloxone HCl 0.2 mg 08/25/19 10:07 Narcan IV Q2M PRN Opioid Reversal Oseltamivir Phosphate 75 mg 08/25/19 11:00 08/28/19 20:41 Tamiflu PO 08/29/19 21:01 75 mg Q12HR DELMY Administration Objective - Vital Signs Vital signs: Vital Signs Temp 98.0 F 08/29/19 06:11 Pulse 92 08/29/19 06:11 Resp 18 08/29/19 06:11 BP 109/75 08/29/19 06:11 Pulse Ox 93 L 08/29/19 06:11 Intake & Output 08/28/19 08/29/19 08/29/19 18:59 06:59 18:59 Intake Total 240 Output Total 1400 900 Balance -1160 -900 Intake: Oral 240 Output: Urine 1400 900 Other: Voiding Method Toilet # Voids 2 1 - Exam GENERAL: The patient is alert and oriented x3, not in any acute distress. Well developed, well nourished. HEENT: Pupils are round and equally reacting to light. EOMI. No scleral icterus. No conjunctival pallor. Normocephalic, atraumatic. No pharyngeal erythema. No thyromegaly. CARDIOVASCULAR: S1 and S2 present. No murmurs, rubs, or gallops. -PULMONARY: Chest is clear to auscultation, no wheezing or crackles. Decreased breath sounds with some crepitation in the both lower lungs ABDOMEN: Soft, nontender, nondistended, normoactive bowel sounds. No palpable organomegaly. MUSCULOSKELETAL: No joint swelling or deformity. EXTREMITIES: No cyanosis, clubbing, or pedal edema. NEUROLOGICAL: Gross neurological examination did not reveal any focal deficits. SKIN: No rashes. no petechiae. - Labs CBC & Chem 7: 08/28/19 08:16 08/28/19 08:16 Labs: Abnormal Lab Results - Last 24 Hours (Table) 08/28/19 08/28/19 Range/Units 08:16 08:16 WBC 10.8 H (3.8-10.6) k/uL RBC 3.64 L (3.80-5.40) m/uL Hgb 11.1 L (11.4-16.0) gm/dL Hct 33.2 L (34.0-46.0) % Neutrophils # 8.3 H (1.3-7.7) k/uL Potassium 3.4 L (3.5-5.1) mmol/L Chloride 108 H (98-107) mmol/L BUN 4 L (7-17) mg/dL Glucose 117 H (74-99) mg/dL Microbiology - Last 24 Hours (Table) 08/26/19 22:18 Blood Culture - Preliminary Blood No Growth after 48 hours 08/25/19 09:20 Blood Culture - Preliminary Blood No Growth after 72 hours Assessment and Plan Assessment: bilateral community acquired pneumonia, rule out staph pneumonia Influenza Systemic inflammatory response with fever, tachycardia GERD Bilateral glaucoma Plan: This is a pleasant 39 years old female who presents with influenza and pneumonia. Continue with antibiotics of vancomycin, ceftriaxone and Tamiflu and follow-up culture results. Follow-up recommendation by routing equipment tender. Start D5 half-normal saline, give cough syrup. Call infectious disease consult for persistent fever Labs and medication were reviewed.. Continue same treatment. Continue with symptomatic treatment. Resume home medication. Monitor lytes and vitals. DVT and GI prophylaxis. Further recommendations of the clinical course of the patient DVT prophylaxis: Subcutaneous heparin GI Prophylaxis: Pepcid Prognosis is guarded
[2019-08-29] MEDS: ALBUTEROL NEBULIZED 2.5 MG/3 ML INHALATION SCH (07:59)
[2019-08-29] MEDS: HEPARIN SODIUM,PORCINE 5,000 UNIT/ML 1 ML VIAL SQ SCH ×2 (08:36→21:16)
[2019-08-29] MEDS: DEXTROSE 5%-0.45% NACL 1,000 ML IV SCH (08:36)
[2019-08-29] MEDS: FAMOTIDINE 20 MG TAB PO SCH ×2 (08:36→21:15)
[2019-08-29] MEDS: OSELTAMIVIR 75 MG CAP PO SCH ×2 (08:36→21:15)
--- NOTE | 2019-08-29 10:09 | XR ---
EXAMINATION TYPE: XR chest 2V DATE OF EXAM: 08/29/2019 COMPARISON: 09/28/2018 TECHNIQUE: PA and lateral views submitted. HISTORY: Shortness of breath FINDINGS: Persistent sizable areas of consolidation are seen and bilateral effusion noted. Heart size stable. N o pneumothorax. IMPRESSION: Bilateral pleural-parenchymal disease correlate for pneumonia versus pulmonary edema . Fi ndings are stable from prior exam.
[2019-08-29] MEDS ORDERED: VANCOMYCIN TROUGH DUE 1 EACH MISC MISCELLANE ONE (11:00)
[2019-08-29 11:45] LABS: African American GFR (CKD) >90 (>60 ml/min/1.73 sqM); Anion Gap 8 mmol/L; Blood Urea Nitrogen 4 mg/dL (7-17); Calcium 8.9 mg/dL (8.4-10.2); Carbon Dioxide 28 mmol/L (22-30); Chloride 106 mmol/L (98-107); Glucose 128 mg/dL (74-99); Non-African American GFR(CKD) >90 (>60 ml/min/1.73 sqM); Potassium 3.6 mmol/L (3.5-5.1); Sodium 142 mmol/L (137-145)
[2019-08-29 12:00] LABS: Basophils # (A) 0.1 k/uL (0-0.2); Basophils % (A) 1 %; Eosinophils # (A) 0.2 k/uL (0-0.7); Eosinophils % (A) 2 %; HCT 32.6 % (34.0-46.0); HGB 10.5 gm/dL (11.4-16.0); Lymphocytes # (A) 1.4 k/uL (1.0-4.8); Lymphocytes % (A) 13 %; MCH 29.4 pg (25.0-35.0); MCHC 32.3 g/dL (31.0-37.0); MCV 90.9 fL (80.0-100.0); Mean Platelet Volume 7.9; Monocytes # (A) 0.7 k/uL (0-1.0); Monocytes % (A) 7 %; Neutrophils % (A) 75 %; Platelet Count 364 k/uL (150-450); RBC 3.59 m/uL (3.80-5.40); RDW 13.1 % (11.5-15.5); WBC 10.6 k/uL (3.8-10.6)
[2019-08-29] MEDS: IPRATROPIUM-ALBUTEROL 3 ML NEB INHALATION SCH ×3 (12:03→20:14)
[2019-08-29] MEDS: INSULIN ASPART (NovoLOG) 100 UNIT/ML VIAL SQ SCH ×3 (12:08→21:16)
[2019-08-29 12:09] LABS: Glucose,Whole Blood 110 mg/dL (75-99)
[2019-08-29] MEDS: methylPREDNISolone SOD SUCCI 40 MG/ML 1 ML VIAL IV SCH ×2 (12:11→21:15)
--- NOTE | 2019-08-29 14:38 | P.PN ---
Subjective Progress Note Date: 08/29/19 Principal diagnosis: Acute influenza infection and bilateral pneumonia This is a very pleasant 39-year-old female patient who follows with Dr. Chatman is her primary care physician. She has no significant medical history. Not on any home medications. ALLERGY is to sulfa. She states 3 days ago she developed increasing shortness of breath, cough or congestion. Nonproductive cough. Body aches, fever, chills or change initially presented to an urgent care center where she was told she was positive for influenza and possible pneumonia on a chest x-ray and was referred here for the same. Chest x-ray does show bilateral infiltrates including the right lower lobe and left perihilar region suspicious for community-acquired pneumonia. White count 7.1. Hemoglobin 13.2. Sodium 137. Potassium 3.2. Creatinine 0.66. HCG is negative. Outside facility stated influenza positive. She is been initiated on vancomycin and ceftriaxone. Started on Tamiflu. 0.9 normal saline at 100 ML's per hour. She is seen in consultation on the regular medical floor. She is awake and alert in no acute distress. Maintaining O2 saturations in the 90s on room air. She's had a T-max of 101.3. Currently 98.4. The patient is seen today 08/26/2019 in follow-up on the regular medical floor. She is awake and alert in no acute distress. She still has some shortness of breath with exertion. Positive cough and congestion. Continues with fever as high as 103 last evening. Continued on acetaminophen and Motrin. Maintaining O2 saturation low 90s on room air. Chest x-ray continues to show bilateral airspace disease obscuring the left heart border and right hemidiaphragm. She's tachycardic. White count 9.1. Hemoglobin 12.2. Creatinine 0.55. Nonproductive cough. Sputum sample pending. She continues on ceftriaxone and vancomycin along with Tamiflu and bronchodilators. Heparin for DVT prophylaxis. Pepcid for GI prophylaxis. Reevaluated today on 08/27/2019, patient remains on the sixth floor, doing well clinically, asymptomatic except for nonproductive cough presently on room air, O2 saturations 94%. She had a T-max of 100 last night. Overall there is improvement, but I would like to see at least no worsening on the chest x-ray in the next 24 hours, and would like to see the patient afebrile before good clear for discharge home. WBC is 8.6 hemoglobin 11.6 electrolytes were reviewed potassium is low being corrected as per protocol. Reevaluated today on 08/28/2019, patient remains on the same floor, slightly worse today, and her chest x-ray showed slight worsening of her infiltrates bilaterally, and there is a possibility of small bilateral pleural effusions. Patient was given Lasix earlier by the admitting physician. She remains on antibiotics and on Tamiflu. Patient had a T-max of 99.4 today, and her maximum temp was 100 yesterday. She is on 2 L nasal cannula and O2 saturation is 97%. She is complaining of intermittent cough, and some shortness of breath on exertion. WBC count is slightly up 10.8 today, hemoglobin is 11.1 electrolytes are relatively normal renal profile is normal potassium is being corrected as per protocol. On 08/29/2017 patient seen in follow-up on medical surgical floor. She still has a very congested cough, lung sounds are bronchospastic, diminished with scattered wheezing, today's chest x-ray has been reviewed, showing bilateral pneumonia versus pulmonary edema, patient has been spiking fevers, and the last 24 hours T-max was 101.0F. Blood cultures so far negative, patient is on a combination of Tamiflu, Rocephin and vancomycin. Objective - Vital Signs Vital signs: Vital Signs Temp 98.0 F 08/29/19 06:11 Pulse 92 08/29/19 12:14 Resp 18 08/29/19 06:11 BP 109/75 08/29/19 06:11 Pulse Ox 93 L 08/29/19 06:11 Intake & Output 08/28/19 08/29/19 08/29/19 18:59 06:59 18:59 Intake Total 240 Output Total 1400 900 Balance -1160 -900 Intake: Oral 240 Output: Urine 1400 900 Other: Voiding Method Toilet # Voids 2 1 - Exam GENERAL EXAM: Alert, very pleasant, 39-year-old white female, on 2 L of oxygen with a pulse ox 93% comfortable in no apparent distress. HEAD: Normocephalic/atraumatic. EYES: Normal reaction of pupils, equal size. Conjunctiva pink, sclera white. NOSE: Clear with pink turbinates. THROAT: No erythema or exudates. NECK: No masses, no JVD, no thyroid enlargement, no adenopathy. CHEST: No chest wall deformity. Symmetrical expansion. LUNGS: Equal air entry with diffuse wheezes, diminished breath sounds, c ongestive cough CVS: Regular rate and rhythm, normal S1 and S2, no gallops, no murmurs, no rubs ABDOMEN: Soft, nontender. No hepatosplenomegaly, normal bowel sounds, no guarding or rigidity. EXTREMITIES: No clubbing, no edema, no cyanosis, 2+ pulses and upper and lower extremities. MUSCULOSKELETAL: Muscle strength and tone normal. SPINE: No scoliosis or deformity SKIN: No rashes CENTRAL NERVOUS SYSTEM: Alert and oriented -3. No focal deficits, tone is normal in all 4 extremities. PSYCHIATRIC: Alert and oriented -3. Appropriate affect. Intact judgment and insight. - Labs CBC & Chem 7: 08/29/19 10:55 08/29/19 10:55 Labs: Abnormal Lab Results - Last 24 Hours (Table) 08/29/19 08/29/19 08/29/19 Range/Units 10:55 10:55 12:04 RBC 3.59 L (3.80-5.40) m/uL Hgb 10.5 L (11.4-16.0) gm/dL Hct 32.6 L (34.0-46.0) % Neutrophils # 8.0 H (1.3-7.7) k/uL BUN 4 L (7-17) mg/dL Glucose 128 H (74-99) mg/dL POC Glucose (mg/dL) 110 H (75-99) mg/dL Microbiology - Last 24 Hours (Table) 08/25/19 09:20 Blood Culture - Preliminary Blood No Growth after 96 hours 08/26/19 22:18 Blood Culture - Preliminary Blood No Growth after 48 hours Assessment and Plan Plan: Assessment: #1. Acute bilateral pneumonia, rule out staph pneumonia #2. Acute influenza infection #3. GERD/reflux Plan: Continue current antibiotic coverage, we will add IV Solu-Medrol 40 mg every 8 hours, we'll put the patient on scheduled bronchodilator treatments. Continue Tamiflu, continue Rocephin and vancomycin, send a sputum for culture, patient continues to have intermittent febrile episodes, still bronchospastic and congested, today's chest x-ray still shows bilateral pneumonia. we'll continue inpatient treatment I performed a history & physical examination of the patient and discussed their management with my nurse practitioner, Laurence Mart. I reviewed the nurse practitioner's note and agree with the documented findings and plan of care. Lung sounds are positive for diffuse wheezes throughout the lung webb. The findings and the impression was discussed with the patient. I attest to the documentation by the nurse practitioner. Time with Patient: Less than 30
[2019-08-29 17:03] LABS: Glucose,Whole Blood 239 mg/dL (75-99)
[2019-08-29 20:56] LABS: Glucose,Whole Blood 249 mg/dL (75-99)
--- NOTE | 2019-08-29 22:12 | P.CONS ---
History of Present Illness - Reason for Consult Consult date: 08/29/19 worsening pneumonia Requesting physician: Storm E Sheet - Chief Complaint Fever and cough x few days - History of Present Illness Patient is a 39-year-old female presenting to the ER at [facility] on August 21, 2019 for evaluation of cough congestion shortness of breath and fever with the symptom has been going on for about 3 days before presenting to the hospital, with the patient had did have influenza test positive in the chest x-ray was suspicious for pneumonia subsequently patient was sent to [facility] ER for further evaluation on arrival to the ER patient did have a fever of 102 194 height she has been tachycardic however her white count was normal patient did have a chest x-ray repeated which shows mild lateral infiltrate correlate for pneumonia otherwise consider CHF patient had did have blood cultures drawn which has been negative no sputum has been collected patient has been treated with Rocephin and vancomycin however patient did have persistent fever and did not have any improvement in her respiratory symptoms patient continued complaining of cough which is moderate in intensity with very minimal sputum production denies having any hemoptysis no significant pleuritic chest pain denies any nausea no vomiting did have some diarrhea stool for C. difficile has been negative and no urine symptoms with worsening of her pneumonia persistent fever infectious disease consulted for further recommendation about antibiotic therapy. Review of Systems CONSTITUTIONAL: Positive for weakness along with the fever. EYES: No complaint. ENT: No complaint. RESPIRATORY: As per history of present illness cARDIOVASCULAR: No complaint. GENITOURINARY: No complaint. GASTROINTESTINAL: As per history of present illness. MUSCULOSKELETAL: No complaint. INTEGUMENTARY: No complaint. PSYCHOLOGIC: No complaint. ENDOCRINE: No complaint. NEUROLOGIC: No complaint. Past Medical History Past Medical History: Eye Disorder, GERD/Reflux Additional Past Medical History / Comment(s): Bilateral glaucoma, slight scoliosis History of Any Multi-Drug Resistant Organisms: None Reported Past Surgical History: Section, Cholecystectomy, Uterine Ablation Additional Past Surgical History / Comment(s): Bilateral laser tx to eyes for glaucoma Past Anesthesia/Blood Transfusion Reactions: No Reported Reaction, Motion Sickness Smoking Status: Never smoker - Past Family History Mother Family Medical History: No Reported History Additional Family Medical History / Comment(s): Mother is healthy Father Additional Family Medical History / Comment(s): Pt does not know much about her father other than he is , was an alcoholic and bilpolar Medications and Allergies Home Medications Medication Instructions Recorded Confirmed Type No Known Home Medications 08/25/19 08/25/19 History Allergies Allergy/AdvReac Type Severity Reaction Status Date / Time Sulfa (Sulfonamide Allergy Rash/Hives Verified 08/25/19 10:27 Antibiotics) Physical Exam Vitals: Vital Signs Temp Pulse Pulse Resp BP Pulse Ox 08/29/19 20:25 92 08/29/19 20:14 90 08/29/19 16:51 92 08/29/19 16:36 90 98 08/29/19 12:32 98.2 F 92 18 134/80 95 08/29/19 12:14 92 08/29/19 12:03 92 08/29/19 08:18 90 08/29/19 08:00 92 08/29/19 06:11 98.0 F 92 18 109/75 93 L 08/29/19 04:24 98.8 F 08/29/19 02:45 101.0 F H Intake and Output 08/29/19 08/29/19 08/29/19 06:59 14:59 22:59 Intake Total 540 Output Total 900 Balance -900 540 Intake: Oral 540 Output: Urine 900 Other: # Voids 1 5 2 GENERAL DESCRIPTION: Middle-aged female lying in bed, no distress. No tachypnea or accessory muscle of respiration use. HEENT: Shows Pallor , no scleral icterus. Oral mucous membrane is dry. NECK: Trachea central, no thyromegaly. LUNGS: Unlabored breathing. Coarse breath sound at the base bilaterally. No wheeze or crackle. HEART: S1, S2, regular rate and rhythm. ABDOMEN: Soft, no tenderness , guarding or rigidity EXTREMITIES: No edema of feet. SKIN: No rash, no masses palpable. NEUROLOGICAL: The patient is awake, alert, oriented x3, mood and affect normal. Results CBC & Chem 7: 08/29/19 10:55 08/29/19 10:55 Labs: Abnormal Lab Results - Last 24 Hours (Table) 08/29/19 08/29/19 08/29/19 Range/Units 10:55 10:55 12:04 RBC 3.59 L (3.80-5.40) m/uL Hgb 10.5 L (11.4-16.0) gm/dL Hct 32.6 L (34.0-46.0) % Neutrophils # 8.0 H (1.3-7.7) k/uL BUN 4 L (7-17) mg/dL Glucose 128 H (74-99) mg/dL POC Glucose (mg/dL) 110 H (75-99) mg/dL 08/29/19 08/29/19 Range/Units 16:57 20:54 RBC (3.80-5.40) m/uL Hgb (11.4-16.0) gm/dL Hct (34.0-46.0) % Neutrophils # (1.3-7.7) k/uL BUN (7-17) mg/dL Glucose (74-99) mg/dL POC Glucose (mg/dL) 239 H 249 H (75-99) mg/dL Microbiology - Last 24 Hours (Table) 08/29/19 09:00 Sputum Culture - Preliminary Sputum 08/25/19 09:20 Blood Culture - Preliminary Blood No Growth after 96 hours 08/26/19 22:18 Blood Culture - Preliminary Blood No Growth after 48 hours Assessment and Plan Assessment: 1-patient admitted hospital with sepsis in this patient who did have a fever tachycardia source is likely pneumonia in this patient who did have acute influenza with concern for possible post influenza pneumonia which is usually associated with resistant gram-positive as well as gram-negative pathogen such as Pseudomonas and MRSA in this patient who has not shown clinical response to initial antibiotic therapy of Rocephin and vancomycin 2-patient with acute influenza for the patient will be completing her 5-day course of Tamiflu today (1) Sepsis Current Visit: Yes Status: Acute Code(s): A41.9 - SEPSIS, UNSPECIFIED ORGANISM SNOMED Code(s): 03632912 (2) Influenza Current Visit: Yes Status: Acute Code(s): J11.1 - FLU DUE TO UNIDENTIFIED INFLUENZA VIRUS W OTH RESP MANIFEST SNOMED Code(s): 3226379 (3) Pneumonia Current Visit: Yes Status: Acute Code(s): J18.9 - PNEUMONIA, UNSPECIFIED O RGANISM SNOMED Code(s): 368772008 Plan: 1-we will try to bring a sputum for Gram stain culture 2-check urine for Legionella antigen 3-vancomycin pharmacy to dose her with a target trough of 15 while watching her kidney function and Vanco trough closely. 4-discontinue Rocephin and start the patient cefepime 2 g every 12 hours and Levaquin 750 mg daily We will follow on clinical condition and cultures to further adjust medication if needed Thank you for this consultation we will follow the patient along with you Time with Patient: Greater than 30
[2019-08-30] MEDS: LEVOFLOXACIN 750 MG TAB PO SCH ×2 (00:21→22:13)
[2019-08-30] MEDS: CEFEPIME 2 GM in SODIUM CHLORIDE 0.9% 100 ML IVPB SCH ×3 (00:22→22:13)
[2019-08-30] MEDS: VANCOMYCIN 1,750 MG in SODIUM CHLORIDE 0.9% 500 ML 500 ML IVPB SCH ×3 (03:56→19:47)
[2019-08-30] MEDS: DEXTROSE 5%-0.45% NACL 1,000 ML IV SCH ×2 (03:56→23:49)
[2019-08-30] MEDS: methylPREDNISolone SOD SUCCI 40 MG/ML 1 ML VIAL IV SCH ×3 (03:59→19:47)
[2019-08-30] MEDS: IPRATROPIUM-ALBUTEROL 3 ML NEB INHALATION SCH ×4 (07:24→19:46)
[2019-08-30 07:49] LABS: Glucose,Whole Blood 163 mg/dL (75-99)
[2019-08-30] MEDS: INSULIN ASPART (NovoLOG) 100 UNIT/ML VIAL SQ SCH ×4 (08:34→22:13)
[2019-08-30] MEDS: HEPARIN SODIUM,PORCINE 5,000 UNIT/ML 1 ML VIAL SQ SCH ×2 (08:35→22:14)
[2019-08-30] MEDS: FAMOTIDINE 20 MG TAB PO SCH ×2 (08:35→22:13)
--- NOTE | 2019-08-30 10:01 | P.PN ---
Subjective This is a pleasant 39 years old female with past medical history of GERD, bilateral glaucoma. Patient presents with cough and fever for the last 3-4 days. Her cough is dry with tenacious phlegm. She has fever and sweating that's not subsided but no overt dyspnea or chest pain. With no resolution of symptoms she went to urgent care today who diagnosed her with bilateral pneumonia and found to be influenza positive and patient was referred to the current hospital. Patient is currently awake and alert and she is breathing quietly. No signif icant dyspnea. However she is not feeling well On admission patient has a fever of 103.6, she is tachycardic at 110, blood pressure 121/71, she is saturating 92% on room air. Potassium was 3.2, other than that she has unremarkable CBC, BMP, INR, liver enzymes. In the emergency room patient was started on vancomycin, Rocephin and Tamiflu. Also she was started on normal saline at 100 mL per hour after 1.5 L of normal saline. 08/26/2019 Patient is fully awake and oriented. She is still complaining of from fever and dry cough, no phlegm is breaking up. No dyspnea or chest pain. Her temperature this morning was up to 102-103 degrees Fahrenheit. She is mildly tachycardic at 111, blood pressure is stable. No change in urine or bowel habits.No headache. No myalgia or arthralgia. Repeat labs from this morning are still pending. Patient remains on vancomycin, Rocephin and Tamiflu. Continue with droplet isolation. 08/27/2019 pt is awake with still similar complaint with cough especially at evening , still running high fever was 100 yesterday and today , we repeated blood culture, and continue with the same treatment of tamiflu and rocephin and vancomycin, low potssium replaced. pt is with followed closely with pulmonary service 08/28/2019 Patient today has more dyspnea and tachypnea. Fever is subsiding. She saturating 97% on 2 L oxygen via deena breathing rate is about 20-22/m. Chest x- ray reviewed by me and done this morning showing bilateral infiltrates Similar when she had on admission, however per the radiologist reports possible pulmonary edema, we stopped the normal saline at 100 mL per hour and we'll give her 1 time dose of Lasix. Repeat labs this morning are still pending. 08/29/2019 Patient is to feels fatigue, she still coughing heart which sometimes Up from sleep. Her dyspnea is improved significantly after she got Lasix yesterday with good urine output. However she is not feeling back or close back to her normal. This morning she has fever of 101. WBC is 10.8. Repeat chest x-ray: Still shows bilateral infiltrates, pending final report. Patient remains on Tamiflu, Rocephin and vancomycin. Normal salinehas discontinued. We'll start the patient on D5 half-normal saline at 50 mg/h. Give cough syrup 12 10/29/2018 Patient feels little better but she still having some fever. She is not that dyspneic while on dressed, patient is seen and examined while she is sitting on the chair. Patient was emotional and crying this morning because this new year he first day, emotional support was provided for the patient, she confirms she feels positive and she has no tendency to hurt herself. Sugar is controlled and pulmonary service and follow the case closely. Steroid has been added and sputum culture has been requested Objective - Vital Signs Vital signs: Vital Signs Temp 97.8 F 08/30/19 05:58 Pulse 79 08/30/19 07:37 Resp 20 08/30/19 07:24 BP 126/76 08/30/19 05:58 Pulse Ox 93 L 08/30/19 07:24 Intake & Output 08/29/19 08/30/19 08/30/19 18:59 06:59 18:59 Intake Total 540 Balance 540 Intake: Oral 540 Other: Voiding Method Toilet # Voids 2 4 - Exam GENERAL: The patient is alert and oriented x3, not in any acute distress. Well developed, well nourished. HEENT: Pupils are round and equally reacting to light. EOMI. No scleral icterus. No conjunctival pallor. Normocephalic, atraumatic. No pharyngeal erythema. No thyromegaly. CARDIOVASCULAR: S1 and S2 present. No murmurs, rubs, or gallops. -PULMONARY: Chest is clear to auscultation, no wheezing or crackles. Decreased breath sounds with some crepitation in the both lower lungs ABDOMEN: Soft, nontender, nondistended, normoactive bowel sounds. No palpable organomegaly. MUSCULOSKELETAL: No joint swelling or deformity. EXTREMITIES: No cyanosis, clubbing, or pedal edema. NEUROLOGICAL: Gross neurological examination did not reveal any focal deficits. SKIN: No rashes. no petechiae. - Labs CBC & Chem 7: 08/29/19 10:55 08/29/19 10:55 Labs: Abnormal Lab Results - Last 24 Hours (Table) 08/29/19 08/29/19 08/29/19 Range/Units 10:55 10:55 12:04 RBC 3.59 L (3.80-5.40) m/uL Hgb 10.5 L (11.4-16.0) gm/dL Hct 32.6 L (34.0-46.0) % Neutrophils # 8.0 H (1.3-7.7) k/uL BUN 4 L (7-17) mg/dL Glucose 128 H (74-99) mg/dL POC Glucose (mg/dL) 110 H (75-99) mg/dL 08/29/19 08/29/19 08/30/19 Range/Units 16:57 20:54 07:39 RBC (3.80-5.40) m/uL Hgb (11.4-16.0) gm/dL Hct (34.0-46.0) % Neutrophils # (1.3-7.7) k/uL BUN (7-17) mg/dL Glucose (74-99) mg/dL POC Glucose (mg/dL) 239 H 249 H 163 H (75-99) mg/dL Microbiology - Last 24 Hours (Table) 08/26/19 22:18 Blood Culture - Preliminary Blood No Growth after 72 hours 08/29/19 09:00 Gram Stain - Preliminary Sputum Sputum Culture - Preliminary 08/25/19 09:20 Blood Culture - Preliminary Blood No Growth after 96 hours Assessment and Plan Assessment: bilateral community acquired pneumonia, rule out staph pneumonia Influenza Systemic inflammatory response with fever, tachycardia GERD Bilateral glaucoma Plan: This is a pleasant 39 years old female who presents with influenza and pneumonia. Continue with antibiotics of vancomycin, ceftriaxone and Tamiflu and follow-up culture results. Follow-up recommendation by head operator. Start D5 half-normal saline, give cough syrup. Call infectious disease consult for persistent fever Labs and medication were reviewed.. Continue same treatment. Continue with symptomatic treatment. Resume home medication. Monitor lytes and vitals. DVT and GI prophylaxis. Further recommendations of the clinical course of the patient DVT prophylaxis: Subcutaneous heparin GI Prophylaxis: Pepcid Prognosis is guarded
[2019-08-30 10:05] LABS: African American GFR (CKD) >90 (>60 ml/min/1.73 sqM); Anion Gap 12 mmol/L; Blood Urea Nitrogen 8 mg/dL (7-17); Calcium 9.3 mg/dL (8.4-10.2); Carbon Dioxide 22 mmol/L (22-30); Chloride 106 mmol/L (98-107); Glucose 212 mg/dL (74-99); Non-African American GFR(CKD) >90 (>60 ml/min/1.73 sqM); Potassium 3.8 mmol/L (3.5-5.1); Sodium 140 mmol/L (137-145)
[2019-08-30 12:34] LABS: Glucose,Whole Blood 164 mg/dL (75-99)
--- NOTE | 2019-08-30 13:28 | P.PN ---
Subjective Progress Note Date: 08/30/19 Principal diagnosis: Acute influenza infection and bilateral pneumonia This is a very pleasant 39-year-old female patient who follows with Dr. Chatman is her primary care physician. She has no significant medical history. Not on any home medications. ALLERGY is to sulfa. She states 3 days ago she developed increasing shortness of breath, cough or congestion. Nonproductive cough. Body aches, fever, chills or change initially presented to an urgent care center where she was told she was positive for influenza and possible pneumonia on a chest x-ray and was referred here for the same. Chest x-ray does show bilateral infiltrates including the right lower lobe and left perihilar region suspicious for community-acquired pneumonia. White count 7.1. Hemoglobin 13.2. Sodium 137. Potassium 3.2. Creatinine 0.66. HCG is negative. Outside facility stated influenza positive. She is been initiated on vancomycin and ceftriaxone. Started on Tamiflu. 0.9 normal saline at 100 ML's per hour. She is seen in consultation on the regular medical floor. She is awake and alert in no acute distress. Maintaining O2 saturations in the 90s on room air. She's had a T-max of 101.3. Currently 98.4. The patient is seen today 08/26/2019 in follow-up on the regular medical floor. She is awake and alert in no acute distress. She still has some shortness of breath with exertion. Positive cough and congestion. Continues with fever as high as 103 last evening. Continued on acetaminophen and Motrin. Maintaining O2 saturation low 90s on room air. Chest x-ray continues to show bilateral airspace disease obscuring the left heart border and right hemidiaphragm. She's tachycardic. White count 9.1. Hemoglobin 12.2. Creatinine 0.55. Nonproductive cough. Sputum sample pending. She continues on ceftriaxone and vancomycin along with Tamiflu and bronchodilators. Heparin for DVT prophylaxis. Pepcid for GI prophylaxis. Reevaluated today on 08/27/2019, patient remains on the sixth floor, doing well clinically, asymptomatic except for nonproductive cough presently on room air, O2 saturations 94%. She had a T-max of 100 last night. Overall there is improvement, but I would like to see at least no worsening on the chest x-ray in the next 24 hours, and would like to see the patient afebrile before good clear for discharge home. WBC is 8.6 hemoglobin 11.6 electrolytes were reviewed potassium is low being corrected as per protocol. Reevaluated today on 08/28/2019, patient remains on the same floor, slightly worse today, and her chest x-ray showed slight worsening of her infiltrates bilaterally, and there is a possibility of small bilateral pleural effusions. Patient was given Lasix earlier by the admitting physician. She remains on antibiotics and on Tamiflu. Patient had a T-max of 99.4 today, and her maximum temp was 100 yesterday. She is on 2 L nasal cannula and O2 saturation is 97%. She is complaining of intermittent cough, and some shortness of breath on exertion. WBC count is slightly up 10.8 today, hemoglobin is 11.1 electrolytes are relatively normal renal profile is normal potassium is being corrected as per protocol. On 08/29/2019 patient seen in follow-up on medical surgical floor. She still has a very congested cough, lung sounds are bronchospastic, diminished with scattered wheezing, today's chest x-ray has been reviewed, showing bilateral pneumonia versus pulmonary edema, patient has been spiking fevers, and the last 24 hours T-max was 101.0F. Blood cultures so far negative, patient is on a combination of Tamiflu, Rocephin and vancomycin. On 08/30/2019 patient seen in follow-up on medical surgical floor. Feeling and sounding much better today, less bronchospastic, less dyspneic, still requiring supplemental oxygen, currently at 2 L, her pulse ox is 93%, did have a fever spike last night, with a temp of 101.0F. Blood and sputum cultures are pending. Patient is on cefepime, Levaquin vancomycin and Tamiflu. ID service is involved, Legionella urinary antigen is pending Objective - Vital Signs Vital signs: Vital Signs Temp 97.8 F 08/30/19 05:58 Pulse 92 08/30/19 11:15 Resp 20 08/30/19 11:01 BP 126/76 08/30/19 05:58 Pulse Ox 93 L 08/30/19 07:24 Intake & Output 08/29/19 08/30/19 08/30/19 18:59 06:59 18:59 Intake Total 540 Balance 540 Intake: Oral 540 Other: Voiding Method Toilet Toilet # Voids 2 4 - Exam GENERAL EXAM: Alert, very pleasant, 39-year-old white female, on 2 L of oxygen with a pulse ox 93% comfortable in no apparent distress. HEAD: Normocephalic/atraumatic. EYES: Normal reaction of pupils, equal size. Conjunctiva pink, sclera white. NOSE: Clear with pink turbinates. THROAT: No erythema or exudates. NECK: No masses, no JVD, no thyroid enlargement, no adenopathy. CHEST: No chest wall deformity. Symmetrical expansion. LUNGS: Equal air entry with end expiratory wheezes, diminished breath sounds, congestive cough. Overall less bronchospastic on today's exam CVS: Regular rate and rhythm, normal S1 and S2, no gallops, no murmurs, no rubs ABDOMEN: Soft, nontender. No hepatosplenomegaly, normal bowel sounds, no guarding or rigidity. EXTREMITIES: No clubbing, no edema, no cyanosis, 2+ pulses and upper and lower extremities. MUSCULOSKELETAL: Muscle strength and tone normal. SPINE: No scoliosis or deformity SKIN: No rashes CENTRAL NERVOUS SYSTEM: Alert and oriented -3. No focal deficits, tone is normal in all 4 extremities. PSYCHIATRIC: Alert and oriented -3. Appropriate affect. Intact judgment and insight. - Labs CBC & Chem 7: 08/29/19 10:55 08/30/19 08:38 Labs: Abnormal Lab Results - Last 24 Hours (Table) 08/29/19 08/29/19 08/30/19 Range/Units 16:57 20:54 07:39 Glucose (74-99) mg/dL POC Glucose (mg/dL) 239 H 249 H 163 H (75-99) mg/dL 08/30/19 08/30/19 Range/Units 08:38 12:30 Glucose 212 H (74-99) mg/dL POC Glucose (mg/dL) 164 H (75-99) mg/dL Microbiology - Last 24 Hours (Table) 08/25/19 09:20 Blood Culture - Preliminary Blood No Growth after 120 hours 08/26/19 22:18 Blood Culture - Preliminary Blood No Growth after 72 hours 08/29/19 09:00 Gram Stain - Preliminary Sputum Sputum Culture - Preliminary Assessment and Plan Plan: Assessment: #1. Acute bilateral pneumonia, rule out staph pneumonia #2. Acute influenza infection #3. GERD/reflux Plan: Continue antibiotic coverage per ID service recommendation, Legionella urine antigen is pending, blood and sputum cultures are pending, one fever spike last night, afebrile today, continue IV steroids, patient is sounding better on today's exam, less bronchospastic, and she feels less dyspneic. Continue DuoNeb, follow-up chest x-ray tomorrow morning I performed a history & physical examination of the patient and discussed their management with my nurse practitioner, Laurence Mart. I reviewed the nurse practitioner's note and agree with the documented findings and plan of care. Lung sounds are positive for diffuse wheezes throughout the lung webb. The findings and the impression was discussed with the patient. I attest to the documentation by the nurse practitioner. Time with Patient: Less than 30
[2019-08-30 17:07] LABS: Glucose,Whole Blood 230 mg/dL (75-99)
[2019-08-30 20:34] LABS: Glucose,Whole Blood 265 mg/dL (75-99)
--- NOTE | 2019-08-30 23:36 | PN ---
PROGRESS NOTE DATE OF SERVICE: 08/30/2019 REASON FOR FOLLOWUP: 1. Acute influenza. 2. Pneumonia. INTERVAL HISTORY: The patient overall fever pattern has improved. No temperature has been recorded today. The patient is breathing comfortably. The patient denies having any chest pain. She continues to have cough, intensity but not bringing up any sputum. No nausea, no vomiting. No abdominal pain. No diarrhea. PHYSICAL EXAMINATION: Blood pressure is 113/74 with a pulse of 69, temperature 96.4. She is 95% on room air. General description is a middle-aged female up in the chair in no distress. Respiratory system: Unlabored breathing. Some coarse breath sounds in the bases. No wheeze. Heart S1, S2. Regular rate and rhythm. Abdomen soft. No tenderness. LABS: BUN of 8, creatinine 0.56. Sputum culture currently pending. DIAGNOSTIC IMPRESSION AND PLAN: Patient admitted to the hospital with acute influenza with secondary bacterial pneumonia. Patient is currently covered with vancomycin and Diflucan that will continue while waiting for the cultures to finalize and continue with supportive care. MMODL / IJN: [id number] /
[2019-08-31] MEDS: methylPREDNISolone SOD SUCCI 40 MG/ML 1 ML VIAL IV SCH ×3 (03:33→20:43)
[2019-08-31] MEDS: VANCOMYCIN 1,750 MG in SODIUM CHLORIDE 0.9% 500 ML 500 ML IVPB SCH ×2 (03:33→11:46)
[2019-08-31 07:04] LABS: Glucose,Whole Blood 152 mg/dL (75-99)
--- NOTE | 2019-08-31 08:00 | XR ---
EXAMINATION TYPE: XR chest 1V portable DATE OF EXAM: 08/31/2019 COMPARISON: 08/29/2019 INDICATION: Influenza pneumonia TECHNIQUE: Single frontal view of the chest is obtained. FINDINGS: The heart size is normal. The pulmonary vasculature is normal. Mild infiltrate is at the right base and in the periphery of the right midlung. Mild infiltrate is in the left lower lobe. Findings are improved over the interval. Small left pleural effusion is present . IMPRESSION: 1. Improving bilateral lung infiltrates. 2. Small left pleural effusion is present.
[2019-08-31] MEDS: INSULIN ASPART (NovoLOG) 100 UNIT/ML VIAL SQ SCH ×4 (08:09→21:14)
[2019-08-31] MEDS: CEFEPIME 2 GM in SODIUM CHLORIDE 0.9% 100 ML IVPB SCH ×2 (08:09→20:46)
[2019-08-31] MEDS: HEPARIN SODIUM,PORCINE 5,000 UNIT/ML 1 ML VIAL SQ SCH ×2 (08:10→20:44)
[2019-08-31] MEDS: FAMOTIDINE 20 MG TAB PO SCH ×2 (08:10→20:43)
[2019-08-31] MEDS: IPRATROPIUM-ALBUTEROL 3 ML NEB INHALATION SCH ×4 (08:57→20:11)
[2019-08-31 09:18] LABS: African American GFR (CKD) >90 (>60 ml/min/1.73 sqM); Anion Gap 11 mmol/L; Blood Urea Nitrogen 12 mg/dL (7-17); Calcium 9.3 mg/dL (8.4-10.2); Carbon Dioxide 25 mmol/L (22-30); Chloride 106 mmol/L (98-107); Glucose 223 mg/dL (74-99); Non-African American GFR(CKD) >90 (>60 ml/min/1.73 sqM); Potassium 3.9 mmol/L (3.5-5.1); Sodium 142 mmol/L (137-145)
[2019-08-31] MEDS ORDERED: VANCOMYCIN TROUGH DUE 1 EACH MISC MISCELLANE ONE (11:00)
[2019-08-31 12:09] LABS: Glucose,Whole Blood 155 mg/dL (75-99)
--- NOTE | 2019-08-31 16:49 | P.PN ---
Subjective Progress Note Date: 08/31/19 Principal diagnosis: Bilateral community-acquired pneumonia This is a very pleasant 39-year-old female patient who follows with Dr. Chatman is her primary care physician. She has no significant medical history. Not on any home medications. ALLERGY is to sulfa. She states 3 days ago she developed increasing shortness of breath, cough or congestion. Nonproductive cough. Body aches, fever, chills or change initially presented to an urgent care center where she was told she was positive for influenza and possible pneumonia on a chest x-ray and was referred here for the same. Chest x-ray does show bilateral infiltrates including the right lower lobe and left perihilar region suspicious for community-acquired pneumonia. White count 7.1. Hemoglobin 13.2. Sodium 137. Potassium 3.2. Creatinine 0.66. HCG is negative. Outside facility stated influenza positive. She is been initiated on vancomycin and ceftriaxone. Started on Tamiflu. 0.9 normal saline at 100 ML's per hour. She is seen in consultation on the regular medical floor. She is awake and alert in no acute distress. Maintaining O2 saturations in the 90s on room air. She's had a T-max of 101.3. Currently 98.4. The patient is seen today 08/31/2019 in follow-up on the regular medical floor. She is doing quite a bit better. Nearly back to her baseline. No worsening shortness of breath cough or congestion. Maintaining O2 saturations in the mid 90s on room air. She's afebrile. Hemodynamically stable. Chest x-ray showing improvement in the bilateral lung infiltrates. She denies any chills or night sweats. Blood and sputum cultures revealed no growth. Sodium 142. Potassium 3.9. Creatinine 0.61. She's been maintained on DuoNeb inhalations, IV Solu- Medrol, antibiotics in the form of vancomycin and cefepime. Objective - Vital Signs Vital signs: Vital Signs Temp 97.5 F L 08/31/19 15:00 Pulse 60 08/31/19 16:00 Resp 20 08/31/19 15:00 BP 153/93 08/31/19 15:00 Pulse Ox 96 08/31/19 15:00 Intake & Output 08/30/19 08/31/19 08/31/19 18:59 06:59 18:59 Intake Total 540 320 Balance 540 320 Intake: Oral 540 320 Other: Voiding Method Toilet Toilet # Voids 1 4 4 - Exam GENERAL EXAM: Alert, active, pleasant 39-year-old female patient, comfortable in no apparent distress. On room air. HEAD: Normocephalic. EYES: Normal reaction of pupils, equal size. NOSE: Clear with pink turbinates. THROAT: Noted erythema no exudates. NECK: No masses, no JVD. CHEST: No chest wall deformity. LUNGS: Equal air entry with few scattered rhonchi bilaterally. CVS: S1 and S2 normal with no audible murmur, regular rhythm. ABDOMEN: No hepatosplenomegaly, normal bowel sounds, no guarding or rigidity. SPINE: No scoliosis or deformity SKIN: No rashes CENTRAL NERVOUS SYSTEM: No focal deficits, tone is normal in all 4 extremities. EXTREMITIES: There is no peripheral edema. No clubbing, no cyanosis. Peripheral pulses are intact. - Labs CBC & Chem 7: 08/29/19 10:55 08/31/19 08:09 Labs: Abnormal Lab Results - Last 24 Hours (Table) 08/30/19 08/30/19 08/31/19 Range/Units 16:55 20:32 07:02 Glucose (74-99) mg/dL POC Glucose (mg/dL) 230 H 265 H 152 H (75-99) mg/dL 08/31/19 08/31/19 Range/Units 08:09 12:07 Glucose 223 H (74-99) mg/dL POC Glucose (mg/dL) 155 H (75-99) mg/dL Microbiology - Last 24 Hours (Table) 08/25/19 09:20 Blood Culture - Final Blood No Growth after 144 hours 08/29/19 09:00 Gram Stain - Final Sputum Sputum Culture - Final 08/26/19 22:18 Blood Culture - Preliminary Blood No Growth after 96 hours Assessment and Plan Assessment: 1 Bilateral pneumonia, community-acquired improved clinically and radiographically 2 Influenza positive per outside facility 3 Febrile illness secondary to above, recovered Plan: The patient was seen and evaluated by Dr. Ramos. Chest x-ray and labs reviewed. She is cleared for discharge from the pulmonary standpoint. She should follow- up in our office in 1-2 weeks' time. We'll repeat a chest x-ray then. Antibiotics per infectious disease. I, the cosigning physician, performed a history & physical examination of the patient. Lungs sounds with few scattered rhonchi bilaterally. Maintaining O2 saturations in the 90s on room air. I discussed the assessment and plan of care with my nurse practitioner, Brenda Watkins. I attest to the above note as dictated by her.
[2019-08-31 16:58] LABS: Glucose,Whole Blood 218 mg/dL (75-99)
[2019-08-31 18:58] LABS: ALT 65 U/L (4-34); AST 50 U/L (14-36); African American GFR (CKD) >90 (>60 ml/min/1.73 sqM); Albumin 3.4 g/dL (3.5-5.0); Alkaline Phosphatase 78 U/L (38-126); Anion Gap 10 mmol/L; Blood Urea Nitrogen 13 mg/dL (7-17); Calcium 8.8 mg/dL (8.4-10.2); Carbon Dioxide 23 mmol/L (22-30); Chloride 106 mmol/L (98-107); Glucose 250 mg/dL (74-99); Non-African American GFR(CKD) >90 (>60 ml/min/1.73 sqM); Potassium 3.6 mmol/L (3.5-5.1); Sodium 139 mmol/L (137-145); Total Bilirubin 0.5 mg/dL (0.2-1.3); Total Protein 6.3 g/dL (6.3-8.2)
[2019-08-31] MEDS: LEVOFLOXACIN 750 MG TAB PO SCH (20:45)
[2019-08-31] MEDS: DEXTROSE 5%-0.45% NACL 1,000 ML IV SCH (20:52)
[2019-08-31 21:10] LABS: Glucose,Whole Blood 213 mg/dL (75-99)
[2019-08-31] MEDS: VANCOMYCIN 1,500 MG in SODIUM CHLORIDE 0.9% 250 ML IVPB SCH (21:24)
--- NOTE | 2019-08-31 23:58 | PN ---
PROGRESS NOTE . DATE OF SERVICE: 08/31/2019 This 39-year-old woman who was admitted with bilateral pneumonia, possibly Staph pneumonia, possibly gram-negative, also had acute influenza as well. The patient being closely monitored. Patient on bronchodilators, antibiotics and otherwise other cultures are negative at this time. Chest x-ray done today which was personally reviewed by me showed persistence of bilateral lower lobe infiltrate, right more the left indicating severe pneumonia. PAST MEDICAL HISTORY: Reviewed. REVIEW OF SYSTEMS: Cardiovascular system: No angina or palpitations. RESPIRATORY: As mentioned earlier. GASTROINTESTINAL: As mentioned earlier. : No dysuria or retention. CENTRAL NERVOUS SYSTEM: No numbness or weakness. CURRENT MEDICATIONS: Reviewed and include: 1. Tylenol p.r.n. 2. DuoNeb q.i.d. and p.r.n. 3. Cefepime 2 grams. 4. Pepcid. 5. Robitussin. 6. Motrin. 7. Levaquin. 8. Solu-Medrol. 9. Narcan. PHYSICAL EXAM: Patient is alert, oriented x3. Pulse 60. Blood pressure 150/90, respiration 20, temperature 97.4, pulse ox 98% on room air. HEENT: Conjunctivae normal. NECK: No jugular venous distention. CARDIOVASCULAR: S1, S2. RESPIRATORY: Breath sounds diminished in the bases. A few scattered rhonchi and crackles in the bases. ABDOMEN: Soft, nontender. LEGS are no edema, no swelling. CENTRAL NERVOUS SYSTEM: No focal deficits. LABORATORY DATA: WBC 10.7, hemoglobin 10.5, glucose 110, 239. ASSESSMENT: 1. Bilateral pneumonia with acute influenza, possibly Staph pneumonia. 2. Acute influenza infection with possible sepsis present on admission. 3. Tachycardia. 4. Gastroesophageal reflux disease. 5. Bilateral glaucoma. 6. 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 7. Gastroesophageal reflux disease. 8. Bilateral glaucoma. 9. Obesity with body mass index of 36. 10.History of section. 11.History of cholecystectomy. 12.FULL CODE. RECOMMENDATIONS AND DISCUSSION: This 39-year-old woman who presented with multiple complex medical issues, we will monitor the patient closely, continue the current medications, management and symptomatic treatment. Continue with antiviral antibiotics. Continue the bronchodilators and IV steroids. Repeat labs in the morning. Guarded prognosis. Further recommendations to follow. See orders for details. MMODL / IJN: [id number] /
[2019-09-01] MEDS: VANCOMYCIN 1,500 MG in SODIUM CHLORIDE 0.9% 250 ML IVPB SCH (04:42)
[2019-09-01] MEDS: methylPREDNISolone SOD SUCCI 40 MG/ML 1 ML VIAL IV SCH (04:42)
[2019-09-01 06:25] VITALS: BP 170/94; RESP 20; TEMP 98.6
[2019-09-01 06:57] LABS: Glucose,Whole Blood 192 mg/dL (75-99)
[2019-09-01] MEDS: IPRATROPIUM-ALBUTEROL 3 ML NEB INHALATION SCH ×2 (07:38→11:31)
--- NOTE | 2019-09-01 08:08 | PN ---
PROGRESS NOTE DATE OF SERVICE: 08/31/2019. REASON FOR FOLLOWUP: Pneumonia. INTERVAL HISTORY: The patient is currently afebrile. She is breathing more comfortably. The patient's cough has decreased in intensity drainage. No chest pain. No nausea, no vomiting. No abdominal pain, no diarrhea. PHYSICAL EXAMINATION: Blood pressure 153/93 with a pulse of 74, temperature 97.5. She is 96% on room air. General description is a middle-aged female up in the bed in no distress. RESPIRATORY SYSTEM: Unlabored breathing. Decreased breath sounds in the bases. No wheeze. HEART: S1, S2. Regular rate and rhythm. ABDOMEN: Soft, no tenderness. LABS: No new labs have been obtained today. Blood culture has been negative. Sputum has been negative for any resistant pathogen. DIAGNOSTIC IMPRESSION AND PLAN: Patient with influenza and post influenza pneumonia. So far culture has been negative for any resistant pathogen. Patient is currently on cefepime and vancomycin and Levaquin. The patient continues to improve, finish therapy with oral Levaquin and monitor clinical course closely. MMODL / IJN: [id number] /
[2019-09-01] MEDS: INSULIN ASPART (NovoLOG) 100 UNIT/ML VIAL SQ SCH (08:15)
[2019-09-01] MEDS: FAMOTIDINE 20 MG TAB PO SCH (08:15)
[2019-09-01] MEDS: HEPARIN SODIUM,PORCINE 5,000 UNIT/ML 1 ML VIAL SQ SCH (08:15)
[2019-09-01] MEDS: CEFEPIME 2 GM in SODIUM CHLORIDE 0.9% 100 ML IVPB SCH (08:15)
[2019-09-01 08:31] LABS: Basophils # (A) 0.1 k/uL (0-0.2); Basophils % (A) 0 %; Eosinophils % (A) 0 %; HCT 35.6 % (34.0-46.0); HGB 11.5 gm/dL (11.4-16.0); Lymphocytes # (A) 1.5 k/uL (1.0-4.8); Lymphocytes % (A) 7 %; MCH 29.3 pg (25.0-35.0); MCHC 32.4 g/dL (31.0-37.0); MCV 90.5 fL (80.0-100.0); Mean Platelet Volume 7.9; Monocytes # (A) 0.9 k/uL (0-1.0); Monocytes % (A) 5 %; Neutrophils # (A) 17.5 k/uL (1.3-7.7); Neutrophils % (A) 86 %; Platelet Count 479 k/uL (150-450); RBC 3.93 m/uL (3.80-5.40); RDW 13.1 % (11.5-15.5); WBC 20.4 k/uL (3.8-10.6)
[2019-09-01 08:41] LABS: African American GFR (CKD) >90 (>60 ml/min/1.73 sqM); Anion Gap 11 mmol/L; Blood Urea Nitrogen 11 mg/dL (7-17); Carbon Dioxide 30 mmol/L (22-30); Chloride 99 mmol/L (98-107); Glucose 191 mg/dL (74-99); Non-African American GFR(CKD) >90 (>60 ml/min/1.73 sqM); Potassium 3.9 mmol/L (3.5-5.1); Sodium 140 mmol/L (137-145)
[2019-09-01 11:43] VITALS: PULSE 80
[2019-09-01 11:55] LABS: Glucose,Whole Blood 190 mg/dL (75-99)
--- NOTE | 2019-09-01 14:05 | PN ---
PROGRESS NOTE DATE OF SERVICE: 09/01/2019 REASON FOR FOLLOWUP: Pneumonia. INTERVAL HISTORY: The patient is seen on rounds this morning. The patient has been afebrile. The patient was breathing more comfortably, denies having any chest pain. Minimal cough. No sputum. No nausea, vomiting, abdominal pain, no diarrhea, overall feeling better. PHYSICAL EXAMINATION: Blood pressure is 170/94 with a pulse of 73, temperature 98.6, 94% on room air. General description is a middle-aged female, up in the bed in no distress. RESPIRATORY SYSTEM: Unlabored breathing, decreased breath sounds at the base, no wheeze. HEART: S1-S2, regular rate and rhythm. ABDOMEN: Soft, no tenderness. LABS: BUN of 11, creatinine 0.5, white count of 25. DIAGNOSTIC IMPRESSION AND PLAN: 1. Patient with an acute influenza and post influenza pneumonia, sputum has been negative for resistant pathogen. Overall improvement, to finish therapy with oral Levaquin. The patient did have jump in white count, more likely steroid effect and need to be monitored closely in the outpatient setting. 2. Follow up in the office in 1 week. Continue supportive care. MMODL / IJN: [id number] /
--- NOTE | 2019-09-01 14:22 | P.PN ---
Subjective Progress Note Date: 09/01/19 Principal diagnosis: Acute influenza infection and bilateral pneumonia This is a very pleasant 39-year-old female patient who follows with Dr. Chatman is her primary care physician. She has no significant medical history. Not on any home medications. ALLERGY is to sulfa. She states 3 days ago she developed increasing shortness of breath, cough or congestion. Nonproductive cough. Body aches, fever, chills or change initially presented to an urgent care center where she was told she was positive for influenza and possible pneumonia on a chest x-ray and was referred here for the same. Chest x-ray does show bilateral infiltrates including the right lower lobe and left perihilar region suspicious for community-acquired pneumonia. White count 7.1. Hemoglobin 13.2. Sodium 137. Potassium 3.2. Creatinine 0.66. HCG is negative. Outside facility stated influenza positive. She is been initiated on vancomycin and ceftriaxone. Started on Tamiflu. 0.9 normal saline at 100 ML's per hour. She is seen in consultation on the regular medical floor. She is awake and alert in no acute distress. Maintaining O2 saturations in the 90s on room air. She's had a T-max of 101.3. Currently 98.4. The patient is seen today 08/26/2019 in follow-up on the regular medical floor. She is awake and alert in no acute distress. She still has some shortness of breath with exertion. Positive cough and congestion. Continues with fever as high as 103 last evening. Continued on acetaminophen and Motrin. Maintaining O2 saturation low 90s on room air. Chest x-ray continues to show bilateral airspace disease obscuring the left heart border and right hemidiaphragm. She's tachycardic. White count 9.1. Hemoglobin 12.2. Creatinine 0.55. Nonproductive cough. Sputum sample pending. She continues on ceftriaxone and vancomycin along with Tamiflu and bronchodilators. Heparin for DVT prophylaxis. Pepcid for GI prophylaxis. Reevaluated today on 08/27/2019, patient remains on the sixth floor, doing well clinically, asymptomatic except for nonproductive cough presently on room air, O2 saturations 94%. She had a T-max of 100 last night. Overall there is improvement, but I would like to see at least no worsening on the chest x-ray in the next 24 hours, and would like to see the patient afebrile before good clear for discharge home. WBC is 8.6 hemoglobin 11.6 electrolytes were reviewed potassium is low being corrected as per protocol. Reevaluated today on 08/28/2019, patient remains on the same floor, slightly worse today, and her chest x-ray showed slight worsening of her infiltrates bilaterally, and there is a possibility of small bilateral pleural effusions. Patient was given Lasix earlier by the admitting physician. She remains on antibiotics and on Tamiflu. Patient had a T-max of 99.4 today, and her maximum temp was 100 yesterday. She is on 2 L nasal cannula and O2 saturation is 97%. She is complaining of intermittent cough, and some shortness of breath on exertion. WBC count is slightly up 10.8 today, hemoglobin is 11.1 electrolytes are relatively normal renal profile is normal potassium is being corrected as per protocol. On 08/29/2019 patient seen in follow-up on medical surgical floor. She still has a very congested cough, lung sounds are bronchospastic, diminished with scattered wheezing, today's chest x-ray has been reviewed, showing bilateral pneumonia versus pulmonary edema, patient has been spiking fevers, and the last 24 hours T-max was 101.0F. Blood cultures so far negative, patient is on a combination of Tamiflu, Rocephin and vancomycin. On 08/30/2019 patient seen in follow-up on medical surgical floor. Feeling and sounding much better today, less bronchospastic, less dyspneic, still requiring supplemental oxygen, currently at 2 L, her pulse ox is 93%, did have a fever spike last night, with a temp of 101.0F. Blood and sputum cultures are pending. Patient is on cefepime, Levaquin vancomycin and Tamiflu. ID service is involved, Legionella urinary antigen is pending On 09/01/2019 patient is seen in follow-up on medical surgical floor. She continues to improve, room air pulse ox is 94%, she's been afebrile, hemodynamically patient has been stable, she's been tolerating ambulation, no febrile episodes were last 48 hours, all cultures are negative, patient has been treated with a combination of Tamiflu, Levaquin, vancomycin and cefepime. His labs have been reviewed, white blood cell count is 20.4, hemoglobin is 7.5, electrolytes and renal profile are within normal limits. Doing well, no acute events overnight, patient has been cleared for discharge home today Objective - Vital Signs Vital signs: Vital Signs Temp 98.6 F 09/01/19 06:24 Pulse 80 09/01/19 11:43 Resp 20 09/01/19 06:24 BP 170/94 09/01/19 06:24 Pulse Ox 94 L 09/01/19 06:24 Intake & Output 08/31/19 09/01/19 09/01/19 18:59 06:59 18:59 Intake Total 320 Balance 320 Intake: Oral 320 Other: # Voids 4 3 2 - Exam GENERAL EXAM: Alert, very pleasant, 39-year-old white female, on 2 L of oxygen with a pulse ox 93% comfortable in no apparent distress. HEAD: Normocephalic/atraumatic. EYES: Normal reaction of pupils, equal size. Conjunctiva pink, sclera white. NOSE: Clear with pink turbinates. THROAT: No erythema or exudates. NECK: No masses, no JVD, no thyroid enlargement, no adenopathy. CHEST: No chest wall deformity. Symmetrical expansion. LUNGS: Equal air entry with end expiratory wheezes, diminished breath sounds, congestive cough. CVS: Regular rate and rhythm, normal S1 and S2, no gallops, no murmurs, no rubs ABDOMEN: Soft, nontender. No hepatosplenomegaly, normal bowel sounds, no guarding or rigidity. EXTREMITIES: No clubbing, no edema, no cyanosis, 2+ pulses and upper and lower extremities. MUSCULOSKELETAL: Muscle strength and tone normal. SPINE: No scoliosis or deformity SKIN: No rashes CENTRAL NERVOUS SYSTEM: Alert and oriented -3. No focal deficits, tone is normal in all 4 extremities. PSYCHIATRIC: Alert and oriented -3. Appropriate affect. Intact judgment and insight. - Labs CBC & Chem 7: 09/01/19 07:40 09/01/19 07:40 Labs: Abnormal Lab Results - Last 24 Hours (Table) 08/31/19 08/31/19 08/31/19 Range/Units 16:55 18:33 21:04 WBC (3.8-10.6) k/uL Plt Count (150-450) k/uL Neutrophils # (1.3-7.7) k/uL Glucose 250 H (74-99) mg/dL POC Glucose (mg/dL) 218 H 213 H (75-99) mg/dL AST 50 H (14-36) U/L ALT 65 H (4-34) U/L Albumin 3.4 L (3.5-5.0) g/dL 09/01/19 09/01/19 09/01/19 Range/Units 06:54 07:40 07:40 WBC 20.4 H (3.8-10.6) k/uL Plt Count 479 H (150-450) k/uL Neutrophils # 17.5 H (1.3-7.7) k/uL Glucose 191 H (74-99) mg/dL POC Glucose (mg/dL) 192 H (75-99) mg/dL AST (14-36) U/L ALT (4-34) U/L Albumin (3.5-5.0) g/dL 09/01/19 Range/Units 11:51 WBC (3.8-10.6) k/uL Plt Count (150-450) k/uL Neutrophils # (1.3-7.7) k/uL Glucose (74-99) mg/dL POC Glucose (mg/dL) 190 H (75-99) mg/dL AST (14-36) U/L ALT (4-34) U/L Albumin (3.5-5.0) g/dL Microbiology - Last 24 Hours (Table) 08/26/19 22:18 Blood Culture - Preliminary Blood No Growth after 120 hours 08/25/19 09:20 Blood Culture - Final Blood No Growth after 144 hours 08/29/19 09:00 Gram Stain - Final Sputum Sputum Culture - Final Assessment and Plan Plan: Assessment: #1. Acute bilateral pneumonia, rule out staph pneumonia #2. Acute influenza infection #3. GERD/reflux Plan: Patient is doing well, breathing is stable, clinically stable, no febrile episodes for last 48 hours, last chest x-ray from yesterday showed improving bilateral lung infiltrates. Small left pleural effusion. Patient is on room air, tolerating ambulation, no acute events overnight, cultures are negative, stable for discharge home today follow-up with Dr. Ramos in the office in one to 2 weeks. I performed a history & physical examination of the patient and discussed their management with my nurse practitioner, Laurence Mart. I reviewed the nurse practitioner's note and agree with the documented findings and plan of care. Lung sounds are positive for diffuse wheezes throughout the lung webb. The findings and the impression was discussed with the patient. I attest to the documentation by the nurse practitioner. Time with Patient: Less than 30
--- NOTE | 2019-09-02 09:48 | DS ---
DISCHARGE SUMMARY DATE OF SERVICE: 09/01/2019 FINAL DIAGNOSES: 1. Bilateral pneumonia with acute influenza, possibly Staph pneumonia. 2. Acute influenza infection possibly with sepsis, present on admission. 3. Tachycardia, improved. 4. Gastroesophageal reflux disease. 5. Bilateral glaucoma. 6. 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 7. Gastroesophageal reflux disease. 8. Obesity with body mass index of 36. 9. History of section. 10.History of cholecystectomy. 11.FULL CODE. DISCHARGE DISPOSITION: The patient will be discharged in stable condition with guarded prognosis. HISTORY OF PRESENT ILLNESS: This 39-year-old woman with a past medical history of multiple medical problems admitted with acute influenza A and as well as bilateral pneumonia with possible sepsis. The patient treated with antibiotics and antivirals. Patient improved significantly. On exam, vitals are stable. CARDIOVASCULAR: S1, S2 muffled. ABDOMEN: Soft. NERVOUS SYSTEM: No focal deficits. DISCHARGE ADVICE AND MEDICATIONS: 1. Diet is cardiac. 2. Activity limited until followup. 3. Follow up with Dr. Chatman in 2 to 3 days. 4. Follow up with Dr. Ramos as recommended. Medications are as follows: 1. Levaquin 750 daily for 5 more days. 2. Prednisone taper at 40 mg daily for 3 days, 30 for 3 days, 20 for 3 days and 10 for 3 days. 3. ProAir HFA 2 puffs q.i.d. p.r.n. 4. Tylenol p.r.n. Once again, the patient will be discharged in a stable condition with guarded prognosis. MMODL / IJN: [id number] /
== END 2019-09-01 12:26 | disposition home or self-care (01) | DRG 871 ==
LOC: EC 08:37 → 6NMEDSUR 10:24
PROVIDERS: ADMIT Internal Medicine; ATTEND Internal Medicine
DX: A41.2 Sepsis due to unspecified staphylococcus (principal); J15.20 Pneumonia due to staphylococcus, unspecified; J11.08 Influenza due to unidentified influenza virus with specified pneumonia; E66.9 Obesity, unspecified; H40.9 Unspecified glaucoma; E09.9 Drug or chemical induced diabetes mellitus without complications; T38.0X5A Adverse effect of glucocorticoids and synthetic analogues, initial encounter; K21.9 Gastro-esophageal reflux disease without esophagitis; Z79.52 Long term (current) use of systemic steroids; Z79.899 Other long term (current) drug therapy; Z81.8 Family history of other mental and behavioral disorders; Z81.1 Family history of alcohol abuse and dependence; Z90.49 Acquired absence of other specified parts of digestive tract; Z88.2 Allergy status to sulfonamides
CPT/HCPCS: 36415; 71045; 71046; 80048; 80053; 80202; 83605; 83735; 84132; 84703; 85025; 87040; 87070; 87205; 87324; 87449; 93005; 94640; 94760; 96360; 99284

== ENCOUNTER → 2020-08-07 | Outpatient (CLI) | payer BC ==
--- NOTE | 2020-08-08 11:05 | MM ---
Reason for exam: screening (asymptomatic). Last mammogram was performed 2 years and 1 month ago. Physical Findings: A clinical breast exam by your physician is recommended on an annual basis and results should be correlated with mammographic findings. MG Screening Mammo w CAD Bilateral CC and MLO view(s) were taken. Prior study comparison: July 06, 2018, bilateral MG screening mammo w CAD. May 10, 2015, bilateral MG screening mammo w CAD. The breast tissue is heterogeneously dense. This may lower the sensitivity of mammography. No significant changes when compared with prior studies. ASSESSMENT: Benign, BI-RAD 2 RECOMMENDATION: Routine screening mammogram of both breasts in 1 year.
== END | disposition home or self-care (01) ==
LOC: RADMAMWWP 07:40
PROVIDERS: ATTEND Obstetrics & Gynecology
DX: Z12.31 Encounter for screening mammogram for malignant neoplasm of breast (principal)
CPT/HCPCS: 77067

== ENCOUNTER → 2022-11-21 | Outpatient (CLI) | payer BC ==
--- NOTE | 2022-11-24 12:33 | MM ---
Reason for Exam: Screening (asymptomatic). Last mammogram was performed 2 year(s) and 3 month(s) ago. Patient History: Menarche at age 11. First Full-Term at age 26. Premenopausal. Last menstrual period: 10/28/2022 Risk Values: Lidia 5 year model risk: 0.9%. NCI Lifetime model risk: 10.7%. Prior Study Comparison: 05/17/2015 Right Diagnostic Mammogram, [facility]. 07/06/2018 Bilateral Screening Mammogram, [facility]. 08/07/2020 Bilateral Screening Mammogram, [facility]. Tissue Density: The breast tissue is heterogeneously dense. This may lower the sensitivity of mammography. Findings: Analyzed By CAD. Benign-appearing bilateral axillary lymph nodes are seen. There is no suspicious group of microcalcifications or new suspicious mass in either breast. Overall Assessment: Negative, BI-RAD 1 Management: Screening Mammogram of both breasts in 1 year. A clinical breast exam by your physician is recommended on an annual basis and results should be correlated with mammographic findings. Electronically signed and approved by: Avi Fraser M.D.
== END | disposition home or self-care (01) ==
LOC: RADMAMWWP 14:48
PROVIDERS: ATTEND Obstetrics & Gynecology
DX: Z12.31 Encounter for screening mammogram for malignant neoplasm of breast (principal)
CPT/HCPCS: 77063; 77067

== ENCOUNTER → 2024-03-23 | Outpatient (CLI) | payer BC ==
--- NOTE | 2024-03-25 09:59 | MM ---
Reason for Exam: Screening (asymptomatic). Last mammogram was performed 1 year(s) and 4 month(s) ago. Patient History: Menarche at age 11. First Full-Term at age 26. Premenopausal. Risk Values: Lidia 5 year model risk: 0.9%. NCI Lifetime model risk: 10.5%. Prior Study Comparison: 07/06/2018 Bilateral Screening Mammogram, [facility]. 08/07/2020 Bilateral Screening Mammogram, [facility]. 11/21/2022 Bilateral MG 3D screening mammo w/cad, [facility]. Tissue Density: The breasts are heterogeneously dense, which may obscure small masses. Findings: Analyzed By CAD. There is no suspicious group of microcalcifications or new suspicious mass in either breast. Overall Assessment: Benign, BI-RAD 2 Management: Screening Mammogram of both breasts in 1 year. . Patient should continue monthly self-breast exams. A clinical breast exam by your physician is recommended on an annual basis. This exam should not preclude additional follow-up of suspicious palpable abnormalities. Note on Lidia scores and lifetime risk: 1. A Lidia score greater than 3% is considered moderate risk. If this is the case, consider specialist referral to assess eligibility for a risk reducing agent. 2. If overall lifetime risk for the development of breast cancer is 20% or higher, the patient may qualify for future screening with alternating mammogram and breast MRI. Electronically signed and approved by: Eric Gonsalez M.D. Radiologis
== END | disposition home or self-care (01) ==
LOC: RADMAMWWP 15:45
PROVIDERS: ATTEND Obstetrics & Gynecology
DX: Z12.31 Encounter for screening mammogram for malignant neoplasm of breast (principal); R92.333 Mammographic heterogeneous density, bilateral breasts
CPT/HCPCS: 77067

== ENCOUNTER → 2024-12-08 | Outpatient (CLI) | payer BC ==
--- NOTE | 2024-12-12 21:56 | P.PCN ---
Date of Procedure: 12/08/24 Operative Findings: Home sleep study Date of service is 12/08/2024 History 44-year-old female patient presented to my office for further advice regarding obstructive sleep apnea. Based on reported history, the patient was diagnosed having MIKE approximately 5 years ago. She was offered CPAP therapy and she was given an APAP unit pressures of 5/20 cm of water. She used the machine briefly and she was not sure of the clinic response that she encountered at the time of the treatment. Based on that, she quit therapy. Her weight remained essentially stable over the past 5 years. She is interested in the evaluation and she was wondering whether she would still benefit from CPAP therapy. She has grinding of the teeth and TMJ. She wears a bite guard. The patient is a mouth breather. No other major comorbidities. Physical findings BMI is 34.8 with a weight of 190 pounds Technical description [facility] [employer] system was used to complete his home sleep study. This is a type III home sleep study evaluation. The total recording duration was 7 hours and 31 minutes. The study started at 10:33 PM and ended at 6:05 AM. There was a total of 7 hours and 17 minutes of flow and x-ray saturation evaluation this was adequate study Results Respiratory analysis showed a total of 236 obstructive apneas in total of 189 obstructive hypopneas. The resulting AHI was 58.3 consistent with severe obstructive sleep apnea Oxygenation The patient had a baseline pulse ox of 97% on room air oxygen. Average pulse ox during sleep was 93% with a minimum pulse ox of 76% during sleep. The patient spent approximately 36 minutes of the sleep time below pulse ox of 89% Cardiac summary Average heart rate was 76 with a minimum heart rate of 60 and a maximum heart of 125 Assessment Severe obstructive sleep apnea with an AHI of 58.3 Nocturnal oxygen desaturation with a minimum pulse ox of 76% during sleep Body mass index of 34.8 TMJ and teeth grinding and the patient wears a bite guard. Acid reflux Scoliosis of the cervical spine Glaucoma Plan This patient should benefit from CPAP therapy. Her disease is severe and she has multiple obstructive apneas and hypopneas with significant nocturnal oxygen saturations. My recommendations are CPAP therapy. If she is willing to undertake the treatment, we will set up the patient for a CPAP titration study. This was discussed with the patient and further recommendations will be made accordingly.
== END ==
LOC: 3 N SLEEP 16:25
PROVIDERS: ATTEND Internal Medicine Critical Care Medicine
DX: M41.9 Scoliosis, unspecified (principal); M26.609 Unspecified temporomandibular joint disorder, unspecified side; G47.33 Obstructive sleep apnea (adult) (pediatric); H40.9 Unspecified glaucoma; K21.9 Gastro-esophageal reflux disease without esophagitis; Z68.34 Body mass index [BMI] 34.0-34.9, adult; Z88.2 Allergy status to sulfonamides

== ENCOUNTER 2025-01-02 19:29 | Outpatient (CLI) | payer BC ==
--- NOTE | 2025-01-04 12:32 | P.PCN ---
Date of Procedure: 01/02/25 Operative Findings: CPAP titration report History 44-year-old female patient presented to my office for further advice regarding obstructive sleep apnea. Based on reported history, the patient was diagnosed having MIKE approximately 5 years ago. She was offered CPAP therapy and she was given an APAP unit pressures of 5/20 cm of water. She used the machine briefly and she was not sure of the clinic response that she encountered at the time of the treatment. Based on that, she quit therapy. Her weight remained essentially stable over the past 5 years. She is interested in the evaluation and she was wondering whether she would still benefit from CPAP therapy. She has grinding of the teeth and TMJ. She wears a bite guard. The patient is a mouth breather. No other major comorbidities. The patient underwent a home sleep study and the patient was found to have severe MIKE with an AHI of 58.3 and the patient is coming in for a CPAP titration. Physical findings BMI is 34.8 with a weight of 190 pounds Technical description The patient was studied using a standard complex polysomnography protocol that included recording of the Lead II EKG, Central, occipital and frontal EEG, right and left outer canthus EOG, submental EMG, right and left anterior tibialis EMG, respiratory airflow by thermocouple and or pressure/flow transducer, respiratory efforts by abdominal and thoracic PVDF belts, oxygen saturation by cable oximetry. Position by observation synchronized the PSG. Equipment used: [employer]. Stepwise CPAP titration was done to eliminate all obstructive respiratory events Sleep architecture The total recording duration was 361.0 minutes. Total sleep time was 190.0 minutes. The overall sleep efficiency was 52.6% and the wake after sleep onset time was 122.5 minutes. The latency to sleep onset was 47 minutes. The latest REM sleep was 90 minutes. The sleep architecture was characterized by 7.4% stage I, 64.5% stage II, 0% stage III and a total of 28.4% REM sleep. Total arousal index was 6.3 Respiratory analysis The patient was started on CPAP therapy and initiated pressure was started at 7 cm and the pressure was measured increased by treatments at 1 cm to reach a maximum CPAP pressure of 10 cm of water. I carefully reviewed the CPAP titration taking, the patient sleep stage and body position. The patient is on various body positions yet the patient was predominantly sleeping on the side and the patient was studied in rem and non-REM sleep. The CPAP pressure of 9 cm of water, this was thought to be an appropriate pressure in treating this patient obstructive sleep apnea. No significant nocturnal oxygen saturation encountered at this level of pressure. Sleep continuity summary A total of 20 arousals with an index of 6.3 and a respiratory arousal index was 0.6 Cardiac summary Average heart rate was 75 with a minimum heart rate of 69 and a maximum of 80 Periodic movement events None Assessment Severe obstructive sleep apnea with an AHI of 58.3, and the patient underwent a successful CPAP titration Nocturnal oxygen desaturation with a minimum pulse ox of 76% during sleep, improved with CPAP therapy Body mass index of 34.8 TMJ and teeth grinding and the patient wears a bite guard. Acid reflux Scoliosis of the cervical spine Glaucoma Plan This patient will be started on a CPAP pressure of 9 cm of water with C-Flex of 3. The patient will be offered an AirFit P10 small size nasal pillows. Encouraged weight loss See me in the office in 30 to 90 days to assess need response and compliancy We will continue to follow
== END 2025-01-03 03:15 | disposition home or self-care (01) ==
LOC: 3 N SLEEP 19:29
PROVIDERS: ATTEND Internal Medicine Critical Care Medicine
DX: G47.33 Obstructive sleep apnea (adult) (pediatric) (principal); G47.63 Sleep related bruxism; K21.9 Gastro-esophageal reflux disease without esophagitis; M41.82 Other forms of scoliosis, cervical region; H40.9 Unspecified glaucoma; Z99.89 Dependence on other enabling machines and devices; Z88.2 Allergy status to sulfonamides
CPT/HCPCS: 95811